=== PATIENT | female | born 1940 | race Caucasian/White ===

== ENCOUNTER → 2017-08-27 08:43 | Outpatient (CLI) | payer MEDICARE, SELFPAY ==
--- NOTE | 2017-08-27 09:00 | ECHOD_ITS ---
Reason For Study: DYSPNEA/SOB Procedure This was a 2D Doppler, Color Flow transthoracic echocardiogram. Contrast injection was performed. The exam was of fair technical quality due to body habitus. Exam performed in department. Left Ventricle Normal size and thickness. The estimated ejection fraction is 50 %. Stage 2 diastolic dysfunction. There is mild global hypokinesis of the left ventricle. Right Ventricle Normal size and thickness. Normal systolic function. Atria The left atrium is moderately enlarged. Normal right atrium. Normal atrial septum. Mitral Valve The mitral valve is structurally normal. No prolapse or stenosis seen. Trivial mitral valve insufficiency. Tricuspid Valve Normal tricuspid valve. Trivial tricuspid valve insufficiency. Right ventricular systolic pressure estimated to be 42 mmHg. Mild pulmonary hypertension. Aortic Valve Normal aortic valve. Trisinus/trileaflet aortic valve. Pulmonic Valve Normal pulmonic valve. Great Vessels Normal aortic root. Normal arch. Normal inferior vena cava. Inferior vena cava collapse with sniff. Pericardium/Pleural No pericardial effusion. Medication 22 gauge I.V. with prn adaptor inserted into right arm. Diluted definity 3ml given slow IV push to enhance endocardial definition. MMode/2D Measurements & Calculations LVIDd: 5.7 cm IVSd: 0.90 cm LA dimension: 3.1 cm LVIDs: 4.5 cm LVPWd: 0.99 cm RVDd: 3.5 cm FS: 21.7 % LAV(MOD-bp): 73.2 ml EDV(MOD-sp4): 119.6 ml EDV(MOD-sp2): 111.7 ml LAV(MOD-bp) Indexed: 32.5 ml/m2 ESV(MOD-sp4): 56.5 ml EF(MOD-sp2): 48.6 % LAV(MOD-sp2): 69.5 ml EF(MOD-sp4): 52.8 % LAV(MOD-sp4): 70.8 ml SV(MOD-sp4): 63.1 ml SV(MOD-sp2): 54.3 ml LA A4 area: 23.4 cm2 RA A4 area: 15.5 cm2 Doppler Measurements & Calculations MV E max iglesia: 102.3 cm/sec Ao V2 max: 175.3 cm/sec LV V1 max: 98.7 cm/sec MV A max iglesia: 84.6 cm/sec Ao max P.3 mmHg LV V1 max P.9 mmHg MV E/A: 1.2 Interpretation Summary The estimated ejection fraction is 50 %. Stage 2 diastolic dysfunction. There is mild global hypokinesis of the left ventricle. The left atrium is moderately enlarged. Trivial mitral valve insufficiency. Trivial tricuspid valve insufficiency. Right ventricular systolic pressure estimated to be 42 mmHg. Mild pulmonary hypertension. Compared to echo report dated 03/02/2017, LV function appears slightly worse, and pt appears to have at least mild pulmonary HTN. Ordering Physician: Masoud Hayward MD Referring Physician: Audi Hayward MD Performed By: Dot Brunson, YOSEPH, RVT
--- NOTE | 2017-08-29 06:48 | PFTCOMP_ITS ---
COMPLETE PULMONARY FUNCTION TEST INTERPRETATION Brief HPI: Patient is a 77 year old female, currently under the care of Dr. Hayward , who presents to [facility] for complete pulmonary function tests secondary to diagnosis of dyspnea on exertion. Respiratory therapist reports good effort and reproducible results. Interpretation: Forced expiration spirometry shows no large airways obstructive ventilatory defect with an FEV1 of 81 % predicted. There is no significant bronchodilator response by ATS criteria. Spirograms are of good quality and plateau normally. The respiratory flow volume loop shows a normal pattern. Lung volumes by body plethysmography show a normal total lung capacity at 3.9 L , 86 % predicted. All other lung volumes are within normal limits. Diffusion capacity by carbon monoxide is decreased at 54 % predicted. The airway resistance is normal. No previous pulmonary function tests were available for review. Impression: Normal spirometry and lung volumes, but isolated defect in diffusion capacity consistent with a pulmonary vascular disorder.
== END ==
PROVIDERS: Family Provider Family Medicine; PCP Family Medicine; Visit Provider Internal Medicine Critical Care Medicine
DX: R06.09 Other forms of dyspnea (principal)
CPT/HCPCS: 93306; 94060; 94726; 94729; Q9957; A4216; C8929

== ENCOUNTER → 2017-09-15 12:57 | Outpatient (CLI) | payer MEDICARE, SELFPAY | PROVIDERS: Family Provider Family Medicine; PCP Family Medicine; Visit Provider Family Medicine | DX: E11.9 Type 2 diabetes mellitus without complications (principal) | CPT/HCPCS: 36415; 83036 ==

== ENCOUNTER → 2018-01-06 09:33 | Outpatient (CLI) | payer MEDICARE, SELFPAY ==
--- NOTE | 2018-01-06 09:33 | DT_ITS ---
This patient was seen during an EMR downtime January 04, 2018 - January 11, 2018. This patient may have a combination of paper and electronic documentation or all paper documentation. All documentation is viewable within the e-chart portion of [facility] for each patient visit.
[2018-01-11 13:23] LABS: Cholesterol 165 mg/dL (200); High Density Lipoprotein 60 mg/dL; Triglycerides 152 mg/dL; Very Low Density Lipoprotein 30 mg/dL (5-40)
== END ==
PROVIDERS: Family Provider Family Medicine; PCP Family Medicine; Visit Provider Family Medicine
DX: E11.9 Type 2 diabetes mellitus without complications (principal); G47.33 Obstructive sleep apnea (adult) (pediatric); E78.5 Hyperlipidemia, unspecified
CPT/HCPCS: 36415; 80061; 83036

== ENCOUNTER → 2018-01-18 12:59 | Outpatient (CLI) | payer MEDICARE, SELFPAY | PROVIDERS: Family Provider Family Medicine; PCP Family Medicine; Visit Provider Internal Medicine Critical Care Medicine | DX: G47.33 Obstructive sleep apnea (adult) (pediatric) (principal) | CPT/HCPCS: 98960; G0463 ==

== ENCOUNTER → 2018-01-22 10:16 | Outpatient (CLI) | payer MEDICARE, SELFPAY | PROVIDERS: Family Provider Family Medicine; PCP Family Medicine; Visit Provider Family Medicine | DX: E11.9 Type 2 diabetes mellitus without complications (principal); G47.30 Sleep apnea, unspecified; E78.5 Hyperlipidemia, unspecified | CPT/HCPCS: 83036 ==

== ENCOUNTER → 2018-04-07 11:40 | Outpatient (CLI) | payer MEDICARE, SELFPAY ==
[2018-04-07 13:00] LABS: Hemoglobin A1c 6.9 % (4.2-6.3)
== END ==
PROVIDERS: Family Provider Family Medicine; PCP Family Medicine; Visit Provider Family Medicine
DX: E11.9 Type 2 diabetes mellitus without complications (principal); Z79.4 Long term (current) use of insulin
CPT/HCPCS: 36415; 83036

== ENCOUNTER → 2018-04-19 14:41 | Outpatient (CLI) | payer MEDICARE, SELFPAY ==
--- NOTE | 2018-04-19 14:43 | ECHOD_ITS ---
Reason For Study: Afib-Flutter Procedure This was a 2D Doppler, Color Flow transthoracic echocardiogram. Technically difficult study due to body habitus. Exam performed in department. Left Ventricle Normal size and thickness. The estimated ejection fraction is 65 %. Stage 1 diastolic dysfunction. No regional wall motion abnormalities noted. Right Ventricle Normal size and thickness. Normal systolic function. Atria Normal left atrium. Normal right atrium. Normal atrial septum. Mitral Valve The mitral valve is structurally normal. No prolapse or stenosis seen. Tricuspid Valve Normal tricuspid valve. Unable to estimate RV systolic pressure/pulmonary artery pressure due to technically difficult study. Aortic Valve Trisinus/trileaflet aortic valve. Mild diffuse aortic valve thickening. Trivial aortic valve insufficiency. Pulmonic Valve Normal pulmonic valve. Great Vessels Normal aortic root. Normal arch. Normal inferior vena cava. Inferior vena cava collapse with sniff. Pericardium/Pleural No pericardial effusion. MMode/2D Measurements & Calculations LVIDd: 5.6 cm IVSd: 0.85 cm Ao root diam: 3.6 cm LVIDs: 4.1 cm LVPWd: 1.0 cm LA dimension: 3.4 cm RVDd: 3.1 cm FS: 27.7 % LAV(MOD-bp): 45.6 ml LA A4 area: 16.2 cm2 RA A4 area: 15.8 cm2 LAV(MOD-bp) Indexed: 20.2 ml/m2 LAV(MOD-sp2): 49.3 ml LAV(MOD-sp4): 44.8 ml Time Measurements MV dec time: 0.24 sec Doppler Measurements & Calculations MV E max henrry: 64.5 cm/sec Lat Peak E' Henrry: 8.1 cm/sec Med Peak E' Henrry: 7.0 cm/sec MV A max henrry: 85.2 cm/sec E/E' lat: 7.9 E/E' med: 9.2 MV E/A: 0.76 MV V2 max: 105.0 cm/sec MV P1/2t max henrry: 84.7 cm/sec Ao V2 max: 181.1 cm/sec MV max P.4 mmHg MV P1/2t: 74.9 msec Ao max P.1 mmHg MV V2 mean: 55.9 cm/sec MV dec slope: 331.3 cm/sec2 Ao V2 mean: 108.3 cm/sec MV mean P.5 mmHg MVA(P1/2t): 2.9 cm2 Ao mean P.6 mmHg MV V2 VTI: 27.8 cm Ao V2 VTI: 37.6 cm AI max henrry: 400.6 cm/sec LV V1 max: 111.7 cm/sec PA V2 max: 92.5 cm/sec AI max P.2 mmHg LV V1 max P.0 mmHg AI dec slope: 239.8 cm/sec2 LV V1 mean P.5 mmHg AI P1/2t: 489.3 msec LV V1 mean: 73.3 cm/sec LV V1 VTI: 25.2 cm Interpretation Summary The estimated ejection fraction is 65 %. Stage 1 diastolic dysfunction. Unable to estimate RV systolic pressure/pulmonary artery pressure due to technically difficult study. Trivial aortic valve insufficiency. Compared to echo report dated 08/27/2017, LV function has normalized from 50% to 65%. Ordering Physician: Abdoul Alcala Referring Physician: Audi Hayward Performed By: Lewis Bernstein RCS
== END ==
PROVIDERS: Family Provider Family Medicine; PCP Family Medicine; Visit Provider Internal Medicine Cardiovascular Disease
DX: Z98.890 Other specified postprocedural states (principal)
CPT/HCPCS: 93306

== ENCOUNTER → 2018-07-14 11:15 | Outpatient (CLI) | payer MEDICARE, SELFPAY ==
[2018-07-14 10:36] VITALS: BMI 51.7
[2018-07-14 12:32] LABS: Hemoglobin A1c 7.6 % (4.2-6.3)
--- OUTSIDE RECORDS SUMMARY | 2018-08-30 14:09 | XMS RPT_ITS ---
:1940 Author Organization [facility] Support Name Relationship Address Phone R Unavailable Unavailable Unavailable SUPPAN, DENISE Unavailable Unavailable + [place] [address] KORIN, INOCENCIA Unavailable [address] + [place] [address] R Unavailable Unavailable Unavailable SUPPAN, DENISE Unavailable Unavailable + [place] [address] KORIN, INOCNECIA Unavailable [address] + [place] [address] R Unavailable Unavailable Unavailable SUPPAN, DENISE Unavailable . + [place] [address] KORIN, INOCENCIA Unavailable [address] + [place] [address] R Unavailable Unavailable Unavailable SUPPAN, DENISE Unavailable . + [place] [address] KORIN, INOCENCIA Unavailable [address] + [place] [address] R Unavailable Unavailable Unavailable SUPPAN, DENISE Unavailable Unavailable + [place] [address] KORIN, INOCENCIA Unavailable [address] + [place] [address] R Unavailable Unavailable Unavailable SUPPAN, DENISE Unavailable Unavailable + [place] [address] KORIN, INOCENCIA Unavailable [address] + [place] [address] R Unavailable Unavailable Unavailable SUPPAN, DENISE Unavailable . + [place] [address] KORIN, INOCENCIA Unavailable [address] + [place] [address] R Unavailable Unavailable Unavailable SUPPAN, DENISE Unavailable Unavailable + [place] [address] KORIN, INOCENCIA Unavailable [address] + [place] [address] R Unavailable Unavailable Unavailable SUPPAN, DENISE Unavailable . + [place] [address] KORIN, INOCENCIA Unavailable [address] + [place] [address] R Unavailable Unavailable Unavailable SUPPAN, DENISE Unavailable Unavailable + [place] [address] KORIN, INOCENCIA Unavailable [address] + [place] [address] R Unavailable Unavailable Unavailable SUPPAN, DENISE Unavailable Unavailable + [place] [address] KORIN, INOCENCIA Unavailable [address] + [place] [address] R Unavailable Unavailable Unavailable SUPPAN, DENISE Unavailable Unavailable + [place] [address] KORIN, INOCENCIA Unavailable [address] + [place] [address] R Unavailable Unavailable Unavailable KORIN, INOCENCIA Unavailable [address] + [place] [address] R Unavailable Unavailable Unavailable SUPPAN, DENISE Unavailable Unavailable + [place] [address] KORIN, INOCENCIA Unavailable [address] + [place] [address] R Unavailable Unavailable Unavailable SUPPAN, DENISE Unavailable . + ., [place] . KORIN, INOCENCIA Unavailable [address] + [place] [address] R Unavailable Unavailable Unavailable KORIN, INOCENCIA Unavailable [address] + [place] [address] R Unavailable Unavailable Unavailable KORIN, INOCENCIA Unavailable [address] + [place] [address] R Unavailable Unavailable Unavailable KORIN, INOCENCIA Unavailable [address] + [place] [address] R Unavailable Unavailable Unavailable KORIN, INOCENCIA Unavailable [address] + [place] [address] R Unavailable Unavailable Unavailable R Unavailable Unavailable Unavailable KORIN, INOCENCIA Unavailable [address] + [place] [address] R Unavailable Unavailable Unavailable KORIN, INOCENCIA Unavailable [address] + [place] [address] KORIN, KIMBERLY Unavailable [address] [facility] + [place] [address] R Unavailable Unavailable Unavailable KORIN, INOCENCIA Unavailable [address] + [place] [address] KORIN, KIMBERLY Unavailable [address] [facility] + [place] [address] R Unavailable Unavailable Unavailable KORIN, INOCENCIA Unavailable [address] + [place] [address] KORIN, KIMBERLY Unavailable [address] [facility] + [place] [address] R Unavailable Unavailable Unavailable KORIN, INOCENCIA Unavailable [address] + [place] [address] Care Team Providers Name Role Phone Deshaun Haywardlas Attending Unavailable Brown, Audi Referring Unavailable Brown, Audi Attending Unavailable Brown, Audi Referring Unavailable Brown, Audi Primary Care Unavailable Masoud Hayward D.O. Attending Unavailable Masoud Hayward D.O. Referring Unavailable Brown, Audi Primary Care Unavailable Brown, Audi Attending Unavailable Brown, Audi Referring Unavailable Brown, Audi Primary Care Unavailable Bandar Falcon Attending Unavailable Masoud Hayward D.O. Referring Unavailable Destiny Huff Attending Unavailable Johanna Henao Attending Unavailable Brown, Audi Referring Unavailable Argenis Monzon Attending Unavailable Amilcar Brush Attending Unavailable Brown, Audi Referring Unavailable Brown, Audi Primary Care Unavailable Abdoul Alcala Attending Unavailable Masoud Hayward D.O. Referring Unavailable Marjorie Rasheed Attending Unavailable Destiny Huff Attending Unavailable Brown, Audi Attending Unavailable Brown, Audi Referring Unavailable Brown, Audi Primary Care Unavailable Minerva UriosteguiO. Attending Unavailable Brown, Audi Referring Unavailable Brown, Audi Attending Unavailable Brown, Audi Referring Unavailable Brown, Audi Primary Care Unavailable Masoud Hayward D.O. Attending Unavailable Brown, Audi Primary Care Unavailable Minerva UriosteguiO. Referring Unavailable Brown, Audi Attending Unavailable Brown, Audi Referring Unavailable Brown, Audi Primary Care Unavailable Marjorie Rasheed Attending Unavailable Brown, Audi Attending Unavailable Brown, Audi Referring Unavailable Brown, Audi Primary Care Unavailable Brown, Audi Attending Unavailable Brown, Audi Referring Unavailable Brown, Audi Primary Care Unavailable Abdoul Alcala Attending Unavailable Brown, Audi Referring Unavailable Brown, Audi Primary Care Unavailable Abdoul Alcala Attending Unavailable Abdoul Alcala Referring Unavailable Audi Hayward Primary Care Unavailable Abdoul Alcala Attending Unavailable Abdoul Alcala Referring Unavailable Johanna Henao Attending Unavailable MainorAudi Referring Unavailable PROBLEMS PROBLEMS DATE TYPE CONDITION / CODE ATTENDING STATUS SOURCE 07/14/2018 Unknown E11.9 - Type 2 Audi Hayward Active [place] diabetes mellitus [facility] without Hospital complications / Repository E11.9(ICD-10) 07/05/2018 Unknown G47.33 - Obstructive Jeremie Henao sleep apnea (adult) [facility] (pediatric) / Hospital G47.33(ICD-10) Repository 07/05/2018 Unknown E66.01 - Morbid Jeremie Henao (severe) obesity due [facility] to excess calories / Hospital E66.01(ICD-10) Repository 04/12/2018 Unknown I48.0 - Paroxysmal Abdoul Alcala Active [place] atrial fibrillation [facility] / I48.0(ICD-10) Hospital Repository 04/12/2018 Unknown Z98.890 - Other Abdoul Alcala Active [place] specified [facility] postprocedural Hospital states / Repository Z98.890(ICD-10) 04/12/2018 Unknown I27.20 - Pulmonary Abdoul Alcala Active [place] hypertension, [facility] unspecified / Hospital I27.20(ICD-10) Repository 04/07/2018 Unknown Z79.4 - [facility] Audi Hayward Active [place] (current) use of [facility] insulin / Hospital Z79.4(ICD-10) Repository 10/07/2017 Unknown R06.09 - Other forms Abdoul Alcala Active [place] of dyspnea / Community R06.09(ICD-10) Hospital Repository PROCEDURES PROCEDURES No Procedure Records FoundRESULTS RESULTS INTERNAL MEDICINE Observed: 07/14/2018 Status: F Source: [place] OFFICE VISIT 11:[address] [facility] REPOSITORY [facility] [address] [place] [address] [place] [address] OFFICE VISIT Date of Service: 07/14/18 MR#: [id number] Acct: [id number] Name: CAMI LANGLEY Rep #: [id number] : 1940 Provider: Audi Hayward DO Age/Sex: 78/F [place] [facility] [place] Status: Signed Intake Vital Signs07/14/18 Body Mass Index (BMI) 51.7 07/14/18 Height 5 ft 2 in 07/14/18 Weight: 280 lb 07/14/18 Body Mass Index (BMI) 51.2 07/14/18 Blood Pressure 153/75 H Intake Visit Reasons: 3 MO FU Chief Complaint: 3 Mo f/u - has had a couple episodes of low blood sugars Is patient in pain?: No Allergies lisinopril Allergy (Verified 07/14/18 10:30) Unknown Medications Ascorbic Acid [Vitamin C] 1,000 mg PO DAILY 03/24/17 [History Confirmed 07/14/18] Cholecalciferol (Vitamin D3) [Vitamin D3] 2,000 unit PO DAILY 03/24/17 [History Confirmed 07/14/18] Naproxen Sodium [Aleve] 220 mg PO Q8H PRN PRN 03/24/17 [History Confirmed 07/14/18] Glenwood-3 Fatty Acids/Fish Oil [Fish Oil 1,000 mg Capsule] 1 ea PO DAILY 03/24/17 [History Confirmed 07/14/18] Aspirin [Aspirin, Baby] 81 mg PO DAILY@0800 04/28/17 [History Confirmed 07/14/18] magnesium 200 mg tablet 200 mg PO QDAY tab 09/24/17 [History Confirmed 07/14/18] potassium 99 mg tablet 99 mg PO QDAY 09/24/17 [History Confirmed 07/14/18] losartan 50 mg tablet 50 mg PO DAILY #90 tab 12/30/17 [Rx Confirmed 07/14/18] levothyroxine 50 mcg tablet 50 mcg PO DAILY #90 tab 01/22/18 [Rx Confirmed 07/14/18] cetirizine 10 mg disintegrating tablet 10 mg PO QDAY #90 tab 02/11/18 [Rx Confirmed 07/14/18] metoprolol succinate ER 25 mg tablet,extended release 24 hr 25 mg PO BID #180 tab 02/11/18 [Rx Confirmed 07/14/18] sitagliptin 50 mg-metformin 1,000 mg tablet 1 tab PO BID #180 tab 03/10/18 [Rx Confirmed 07/14/18] simvastatin 40 mg tablet 40 mg PO QHS #90 tab 05/11/18 [Rx Confirmed 07/14/18] glipizide 5 mg tablet 5 mg PO BID #180 tab 05/26/18 [Rx Confirmed 07/14/18] insulin NPH isophane U- 100 human 100 unit/mL subcutaneous suspension 30 unit SC BID #20 ml 07/14/18 [Rx Confirmed 07/14/18] PFSH Medical History AF (paroxysmal atrial fibrillation) (Chronic) History of hysterectomy (Resolved) Osteoarthritis (Chronic) Obesity (Chronic) Vertigo (Chronic) Hyperlipidemia (Chronic) HTN (hypertension) (Chronic) Diabetes mellitus (Chronic) Chronic fatigue and malaise (Chronic) Daytime somnolence (Chronic) A-fib (Chronic) Chest pain (Acute) Palpitations (Acute) DEE (obstructive sleep apnea) (Chronic) Dyspnea on exertion (Chronic) Surgical History History of cardiac cath (Chronic 04/29/17) History of cataract surgery (Resolved) History of tonsillectomy (Resolved) History of appendectomy (Resolved) Family History Mother Hypertension Cancer Father Hypertension Diabetes Sister Diabetes Social History Smoking Status: Never smoker second hand exposure: No alcohol intake: never substance use type: does not use HPI HPI Chief Complaint: 3 Mo f/u - has had a couple episodes of low blood sugars Details: CAMI LANGLEY, is a 78 F who presents to the office today for follow-up on her blood sugars as well as to have her left knee injected. ROS Const Constitutional: No chills, fatigue, fever(s), frequent falls, malaise, weakness, sleep problems or change in appetite Eyes Eyes: No blurry vision, change in vision, double vision, discharge or visual disturbances ENT ENT: No abnormal hearing, ear pain, ear pressure, tinnitus or dizziness/vertigo Resp Respiratory: No cough, shortness of breath or wheezing Cardio Cardiology: No chest pain at rest, chest pain with exertion, shortness of breath, dyspnea on exertion, generalized swelling, irregular heart rhythm, lightheadedness, orthopnea, fast heart rate or palpitations Gastro GI: No abdominal pain, change in bowel habits, constipation, diarrhea, nausea/dyspepsia or vomiting Genitourinary-Female: No difficulty urinating, burning urination, painful urination, urinary incontinence, urinary frequency, urinary urgency, urinary hesitancy, urinary retention, Frequent nighttime urination/ nocturia, sexual problems, genital lesions, abnormal vaginal bleeding, pelvic pain, vaginal dryness, vaginal odor or Vaginal Itching Musc Musculoskeletal: No joint pain, back pain, joint swelling, limited range of motion, numbness, tingling or muscle weakness Skin Skin: No change in skin color, itching, rash or wounds Breast Breast: No breast lump or breast pain Neuro Neurology: No frequent falls, weakness, visual disturbances, abnormal hearing, numbness, tingling, unsteady gait/balance, dizziness, loss of vision or memory loss Psych Psychiatric: No change in appetite, No memory loss, No anxiety, No depression, No Thoughts of harming yourself/Others Endo Endocrine: No fatigue, heat intolerance, increased thirst/drinking, increased hunger or increased urination Aller/Imm Allergy/Immunologic: No wheezing, itchy eyes or seasonal allergy symptoms Eugenio/Lymp Hematologic/Lymphatic: No easy bleeding, easy bruising or enlarged lymph nodes Exam Const Nutritional Appearance: obese morbidly obese Orientation: oriented x3 Neck Neck: no lymphadenopathy Thyroid: thyroid normal Resp Effort AND Inspection: decreased respiratory effort Auscultation: Bilateral: Clear to Auscultation Cardio Rate: regular rate Rhythm: regular rhythm GI Auscultation: normal bowel sounds Musc Musculoskeletal: Yes joint tenderness (left knee); no muscle weakness Skin Lesions: lesion noted (healing bite on the right lower leg) Neuro General: oriented x3 Extrem General: no clubbing, cyanosis or edema Psych Mental Status: mental status grossly normal Office Procedures Ortho Injections Injections Yes Knee Left Details: Left knee injected with 2 cc of 1%xylocaine and one cc of Kenalog Office Meds Kennolberto Performing Provider: Audi Hayward DO Administered by: Audi Hayward DO on 07/14/18 11:17 Dose Route Admin Location Lot Number Expiration Date NDC [employer] 40 mg IM left knee [id number] 07/20/18 4020-8795-83 [facility] Assessment AND Plan Plan This patient's been doing relatively well her dyspnea is better she has been seeing cardiology and pulmonology. Her left knee which she has had injected in the past has flared up and she had it injected with Kenalog and Xylocaine again. Hemoglobin A1c was ordered medications were updated. By enlarge I think this patient is doing well she has lost 9 pounds since her last visit and I encouraged her to keep up with the weight loss. Orders Orders: Medications Refilled: Discontinued: Kenalog (triamcinolone acetonide) Discontinued Reason:40 mg IM ONCE 1 mL 0RF NS M17.12 Office Medication has been Documented as given Plan Detail Follow Up 3 Months Coding Level of Care Code Off vis,est,level 3 Additional Codes autoglazier.knee (57873) 07/14/18 1123 <Electronically signed by Audi Hayward DO> Date Audi Hayward DO Cosigner Signature: Date (if applicable) CC: HEMOGLOBIN A1C Collected: 07/14/2018 Status: F Source: [place] 11:[address] [facility] REPOSITORY TYPE CODE TESTS RESULT OUT OF RANGE REFERENCE UNITS LAB L501.9985 4.2-6.3 % High HGB A1C 7.6 Performed By: #### L501.9985 #### [facility] [place], [place], [address] PULMONARY VISIT REPORT Observed: 07/05/2018 Status: F Source: [place] 10:[address] [facility] REPOSITORY [facility] [address] [place] [address] OFFICE VISIT Date of Service: 07/05/18 MR#: [id number] Acct: [id number] Name: CAMI LANGLEY Rep #: [id number] : 1940 Provider: Johanna Henao Age/Sex: 78/F [place] [facility] [place] Status: Signed Assessment AND Plan 1. DEE (obstructive sleep apnea) G47.33 Plan Patient is using and benefiting from Pap therapy. No indication for titration study at this time. Continue to encourage weight loss. Contact the office for any new or worsening symptoms in the meantime. Follow-up in 6 mos. 2. Class 3 severe obesity due to excess calories with serious comorbidity and body mass index (BMI) of 50.0 to 59.9 in adult E66.01 Plan Continue to encourage weight loss. Patient is actively watching her diet. Discussed that with a 20% weight loss she may require less pressure for her BiPAP. Patient conveys understanding. Follow-up with Dr. Hayward in 6 months, contact the office if having any difficulties with her Pap in the meantime. Plan Detail Follow Up 6 Months (DMB) HPI 6 M FU: Chief Complaint: Lower extremity edema HPI Comments Details: This is a 78 year old F, here to follow up for sleep apnea. She is ambulatory and currently on room air. She is accompanied today by her . She has not been seen in the ED or urgent care for respiratory illnesses since her last office visit. Is not required any antibiotics or prednisone for any breathing problems. She experiences shortness of breath on exertion only, denies any shortness of breath with rest or conversation. She denies any cough, sputum production or hemoptysis. She denies any wheezing, chest tightness, chest pain or palpitations. She denies any fever, chills or body aches. She continues to experience lower extremity edema, reports that she was trialed on a water pill but was not found to be effective for her. She has tried Etienne wraps, she believes her edema is more related to lymph drainage. Unfortunately she was unable to keep up with the Etienne wraps. She did purchase a pair of pressure stockings, unfortunately she was unable to get them on. Current use of pressure support therapy is on average of nearly 8 hours per night with current settings of 18/12 cmH2O. CAMI denies any daytime somnolence, dry mouth in the morning, nocturia, snoring through the mask, or morning headaches, but is experiencing difficulty with mask leaks. CAMI reports feeling rested in the morning and is benefitting from current therapy. Compliance report was reviewed and shows 100% compliance, AHI is controlled at an average of 1.3 events per hour and leads do not appear to be a problem. Intake Vital Signs07/05/18 Height 5 ft 2 in 07/05/18 Weight: 283 lb Intake Visit Reasons: 6 M FU DME Vendor: [employer] Accompanied by: Allergies lisinopril Allergy (Verified 07/05/18 10:08) Unknown Medications Ascorbic Acid [Vitamin C] 1,000 mg PO DAILY 03/24/17 [History Confirmed 07/05/18] Cholecalciferol (Vitamin D3) [Vitamin D3] 2,000 unit PO DAILY 03/24/17 [History Confirmed 07/05/18] Naproxen Sodium [Aleve] 220 mg PO Q8H PRN PRN 03/24/17 [History Confirmed 07/05/18] [place]wood-3 Fatty Acids/Fish Oil [Fish Oil 1,000 mg Capsule] 1 ea PO DAILY 03/24/17 [History Confirmed 07/05/18] Aspirin [Aspirin, Baby] 81 mg PO DAILY@0800 04/28/17 [History Confirmed 07/05/18] magnesium 200 mg tablet 200 mg PO QDAY tab 09/24/17 [History Confirmed 07/05/18] potassium 99 mg tablet 99 mg PO QDAY 09/24/17 [History Confirmed 07/05/18] losartan 50 mg tablet 50 mg PO DAILY #90 tab 12/30/17 [Rx Confirmed 07/05/18] levothyroxine 50 mcg tablet 50 mcg PO DAILY #90 tab 01/22/18 [Rx Confirmed 07/05/18] cetirizine 10 mg disintegrating tablet 10 mg PO QDAY #90 tab 02/11/18 [Rx Confirmed 07/05/18] metoprolol succinate ER 25 mg tablet,extended release 24 hr 25 mg PO BID #180 tab 02/11/18 [Rx Confirmed 07/05/18] sitagliptin 50 mg-metformin 1,000 mg tablet 1 tab PO BID #180 tab 03/10/18 [Rx Confirmed 07/05/18] hydrochlorothiazide 12.5 mg tablet 12.5 mg PO DAILY #30 tab 04/12/18 [Rx Confirmed 07/05/18] simvastatin 40 mg tablet 40 mg PO QHS #90 tab 05/11/18 [Rx Confirmed 07/05/18] glipizide 5 mg tablet 5 mg PO BID #180 tab 05/26/18 [Rx Confirmed 07/05/18] insulin NPH isophane U- 100 human 100 unit/mL subcutaneous suspension 30 unit SC BID #10 ml 06/16/18 [Rx Confirmed 07/05/18] [facility] Medical History AF (paroxysmal atrial fibrillation) (Chronic) History of hysterectomy (Resolved) Osteoarthritis (Chronic) Obesity (Chronic) Vertigo (Chronic) Hyperlipidemia (Chronic) HTN (hypertension) (Chronic) Diabetes mellitus (Chronic) Chronic fatigue and malaise (Chronic) Daytime somnolence (Chronic) A-fib (Chronic) Chest pain (Acute) Palpitations (Acute) DEE (obstructive sleep apnea) (Chronic) Dyspnea on exertion (Chronic) Surgical History History of cardiac cath (Chronic 04/29/17) History of cataract surgery (Resolved) History of tonsillectomy (Resolved) History of appendectomy (Resolved) Family History Mother Hypertension Cancer Father Hypertension Diabetes Sister Diabetes Social History Smoking Status: Never smoker second hand exposure: No alcohol intake: never substance use type: does not use Review of Systems Const CONSTITUTIONAL: Negative anorexia, body ache, chills, daytime sleepiness, fever(s), night sweats, oral thrush, stops breathing during sleep, weight loss, sleeping in chair, fatigue, weight loss, weight gain, frequent colds, seasonal allergies, other, headache(s) or orthopnea EETM Ear Nose Throat Mouth: Positive hearing normal; negative hard of hearing, hoarseness, dry mouth in morning, change in vision, itchy eyes, eye pain, swallowing Difficulty, ear pain, nose bleed, headache(s), mouth pain, nasal congestion, nasal discharge, post nasal drip, sinus pain, sinus pressure, sore throat or other Cardio Cardiovascular: Negative chest pain, chest pain at rest, chest pain with activity, irregular heart rhythm, edema, shortness of breath when lying down, palpitations, murmur or other Resp Respiratory: Positive as per HPI and shortness of breath shortness of breath: Positive with activity; negative pain with cough, wheezing, chest congestion, cough, chest tightness, pain on inspiration, inhalers, increase use of rescue inhalers, snoring, apnea or other Gastro Gastrointestional: Negative bloody stools, change in appetite, difficulty swallowing, reflux, hematemesis, melena stool, loose stool, constipation or other Genitourinary: Negative blood in urine, nocturia, pain with urination or other Musc Musculoskeletal: Negative body pain, back pain, neck pain or other Skin/Breast Skin/Breast: Negative dry skin, itching, rash, unusual bruising, breast lump or other Neuro Neurological: Negative restless legs, confusion, weakness or other Psych Psychocological: Negative abnormal sleep pattern, anxiety, thoughts of hurting self/others, hopelessness or other Lymph Lymphatic: Negative easy bleeding, easy bruising, swollen lymph nodes or other Exam Const Constitutional: Positive conversant, cooperative, in no acute respiratory distress, healthy appearing, well developed, well nourished, good hygiene and obese Head Head: Positive normocephalic and atraumatic; negative cyanosis of lips/distal nose Eyes Eye: Positive clear conjunctiva; negative nystagmus or scleral abnormality Ears Ear: Positive hearing normal and external ears normal; negative hard of hearing Nose Nose: Positive external nose normal and no nasal discharge; negative epistaxis Mouth Mouth: Positive oral mucosae normal, no lesions, good dentition and posterior oropharynx is adequate; negative post nasal drip, malodorous breath or oral thrush present Mallampati Score: II: Mallampati Score Neck Neck: Positive normal visual inspection, full ROM and trachea midline; negative lymphadenopathy, JVD or tender Chest Wall Chest: Positive normal inspection of the chest and symmetric chest movement; negative increased A/P diameter Resp lung sounds: Positive clear to auscultation, good air exchange, normal expiratory time and normal respiratory effort; negative diminished, wheezes, rhonchi, rales, dullness to percussion or wheeze present on forced exhalation Cardio Cardiac: Positive regular rate, regular rhythm, S1 normal and S2 normal; negative murmur GI GI: Positive normal to inspection and obese; negative distended Genitourinary: Positive deferred Musc Musculoskeletal: Positive steady gait and ROM normal; negative kyphosis or scoliosis Skin Pulmonary Skin Exam: Positive intact; negative rash Pulses Pulse: Yes pulses normal x4 extremities Extremities Extremities: Yes capillary refill normal, No clubbing, No cyanosis, Yes edema Location: lower extremity location: Bilateral pitting +2 Neuro Neurologic: Yes conversant, Yes no focal neuro deficits, Yes normal concentration, Yes understands questions, Yes cooperative, Yes normal cognition, Yes normal coordination, No tremor Lymph Lymphatic: No lymphadenopathy, No tenderness, No cervical adenopathy Psych Appearance: Positive grossly normal, eye contact and well kempt Mental Status: Positive mental status grossly normal Mood: Positive congruent mood Affect: Positive normal affect Coding Level of Care Code Off vis,est,level 3 Diagnoses DEE (obstructive sleep apnea) G47.33 Class 3 severe obesity due to excess calories with serious comorbidity and body mass index (BMI) of 50.0 to 59.9 in adult E66.01 Obesity type: due to excess calories Obesity classification: adult class 3 (BMI >= 40) Serious obesity comorbidity presence: with serious comorbidity Body mass index: BMI 50.0-59.9 07/05/18 1044 <Electronically signed by Johanna CHAVEZ> Date Johanna CHAVEZ Cosigner Signature: Date (if applicable) CC: Audi Hayward DO ECHOCARDIOGRAM COMPLETE Observed: 04/20/2018 Status: F Source: [place] 11:[address] [facility] REPOSITORY [facility] Cardiovascular Services [address] [place] [id number] Echo Complete 04/19/18 1445 MR#: [id number] Acct: [id number] Name: CAMI LANGLEY Rep #: [id number] : 1940 77 From: Abdoul Alcala MD Attending Dr: Abdoul Alcala MD Status: [facility] Ordering Dr: Abdoul Alcala MD Date: 04/19/18 Location: [facility] Sex: F C Admitted: Reason For Study: Afib-Flutter Procedure This was a 2D Doppler, Color Flow transthoracic echocardiogram. Technically difficult study due to body habitus. Exam performed in department. Left Ventricle Normal size and thickness. The estimated ejection fraction is 65 %. Stage 1 diastolic dysfunction. No regional wall motion abnormalities noted. Right Ventricle Normal size and thickness. Normal systolic function. Atria Normal left atrium. Normal right atrium. Normal atrial septum. Mitral Valve The mitral valve is structurally normal. No prolapse or stenosis seen. Tricuspid Valve Normal tricuspid valve. Unable to estimate RV systolic pressure/pulmonary artery pressure due to technically difficult study. Aortic Valve Trisinus/trileaflet aortic valve. Mild diffuse aortic valve thickening. Trivial aortic valve insufficiency. Pulmonic Valve Normal pulmonic valve. Great Vessels Normal aortic root. Normal arch. Normal inferior vena cava. Inferior vena cava collapse with sniff. Pericardium/Pleural No pericardial effusion. MMode/2D Measurements AND Calculations LVIDd: 5.6 cm IVSd: 0.85 cm Ao root diam: 3.6 cm LVIDs: 4.1 cm LVPWd: 1.0 cm LA dimension: 3.4 cm RVDd: 3.1 cm FS: 27.7 % LAV(MOD-bp): 45.6 ml LA A4 area: 16.2 cm2 RA A4 area: 15.8 cm2 LAV(MOD-bp) Indexed: 20.2 ml/m2 LAV(MOD-sp2): 49.3 ml LAV(MOD-sp4): 44.8 ml Time Measurements MV dec time: 0.24 sec Doppler Measurements AND Calculations MV E max henrry: 64.5 cm/sec Lat Peak E' Henrry: 8.1 cm/sec Med Peak E' Henrry: 7.0 cm/sec MV A max henrry: 85.2 cm/sec E/E' lat: 7.9 E/E' med: 9.2 MV E/A: 0.76 MV V2 max: 105.0 cm/sec MV P1/2t max henrry: 84.7 cm/sec Ao V2 max: 181.1 cm/sec MV max P.4 mmHg MV P1/2t: 74.9 msec Ao max P.1 mmHg MV V2 mean: 55.9 cm/sec MV dec slope: 331.3 cm/sec2 Ao V2 mean: 108.3 cm/sec MV mean P.5 mmHg MVA(P1/2t): 2.9 cm2 Ao mean P.6 mmHg MV V2 VTI: 27.8 cm Ao V2 VTI: 37.6 cm AI max henrry: 400.6 cm/sec LV V1 max: 111.7 cm/sec PA V2 max: 92.5 cm/sec AI max P.2 mmHg LV V1 max P.0 mmHg AI dec slope: 239.8 cm/sec2 LV V1 mean P.5 mmHg AI P1/2t: 489.3 msec LV V1 mean: 73.3 cm/sec LV V1 VTI: 25.2 cm Interpretation Summary The estimated ejection fraction is 65 %. Stage 1 diastolic dysfunction. Unable to estimate RV systolic pressure/pulmonary artery pressure due to technically difficult study. Trivial aortic valve insufficiency. Compared to echo report dated 08/27/2017, LV function has normalized from 50% to 65%. Ordering Physician: Abdoul Alcala Referring Physician: Audi Hayward Performed By: Lewis Bernstein RCS 04/20/18 1105 Date Abdoul Alcala MD CC: Abdoul Alcala MD; Audi HaywardDO Date Dictated: 04/19/18 1445 Date Transcribed: 04/20/18 1105 Head Housekeeper: Signed CARDIOLOGY VISIT Observed: 04/20/2018 Status: F Source: [place] REPORT 10:[address] [facility] REPOSITORY [facility] [address] [place] [address] OFFICE VISIT Date of Service: 04/12/18 MR#: [id number] Acct: [id number] Name: CAMI LANGLEY Rep #: [id number] : 1940 Provider: Abdoul Alcala MD Age/Sex: 77/F [place] [facility] [place] Status: Signed HPI HPI Details: CAMI LANGLEY is a 77 F who presents to the office today for Intake Vital Signs04/12/18 Body Mass Index (BMI) 52.8 04/12/18 Blood Pressure 140/70 04/12/18 Height 5 ft 2 in 04/12/18 Weight: 289 lb 04/12/18 Body Mass Index (BMI) 52.8 04/12/18 Blood Pressure 140/70 Intake Visit Reasons: 6 M FU Talent Development Analyst Required: No Accompanied by: Is patient in pain?: No Allergies lisinopril Allergy (Verified 04/12/18 14:11) Unknown Medications Ascorbic Acid [Vitamin C] 1,000 mg PO DAILY 03/24/17 [History Confirmed 04/09/18] Cholecalciferol (Vitamin D3) [Vitamin D3] 2,000 unit PO DAILY 03/24/17 [History Confirmed 04/09/18] Naproxen Sodium [Aleve] 220 mg PO Q8H PRN PRN 03/24/17 [History Confirmed 04/09/18] [place]-3 Fatty Acids/Fish Oil [Fish Oil 1,000 mg Capsule] 1 ea PO DAILY 03/24/17 [History Confirmed 04/09/18] Simvastatin [Zocor] 40 mg PO QHS 03/24/17 [History Confirmed 04/09/18] glipiZIDE [Glucotrol] 5 mg PO BID 03/24/17 [History Confirmed 04/09/18] Aspirin [Aspirin, Baby] 81 mg PO DAILY@0800 04/28/17 [History Confirmed 04/09/18] magnesium 200 mg tablet 200 mg PO QDAY tab 09/24/17 [History Confirmed 04/12/18] potassium 99 mg tablet 99 mg PO QDAY 09/24/17 [History Confirmed 04/12/18] losartan 50 mg tablet 50 mg PO DAILY #90 tab 12/30/17 [Rx Confirmed 04/09/18] insulin NPH isophane U-100 human 100 unit/mL subcutaneous suspension 30 unit SC BID #10 ml 01/22/18 [Rx Confirmed 04/09/18] levothyroxine 50 mcg tablet 50 mcg PO DAILY #90 tab 01/22/18 [Rx Confirmed 04/09/18] cetirizine 10 mg disintegrating tablet 10 mg PO QDAY #90 tab 02/11/18 [Rx Confirmed 04/09/18] metoprolol succinate ER 25 mg tablet,extended release 24 hr 25 mg PO BID #180 tab 02/11/18 [Rx Confirmed 04/09/18] sitagliptin 50 mg-metformin 1,000 mg tablet 1 tab PO BID #180 tab 03/10/18 [Rx Confirmed 04/09/18] hydrochlorothiazide 12.5 mg tablet 12.5 mg PO DAILY #30 tab 04/12/18 [Rx Confirmed 04/12/18] [facility] Medical History AF (paroxysmal atrial fibrillation) (Chronic) Osteoarthritis (Chronic) Obesity (Chronic) Vertigo (Chronic) Hyperlipidemia (Chronic) HTN (hypertension) (Chronic) Diabetes mellitus (Chronic) Chronic fatigue and malaise (Chronic) Daytime somnolence (Chronic) A-fib (Chronic) Chest pain (Acute) Palpitations (Acute) DEE (obstructive sleep apnea) (Chronic) Dyspnea on exertion (Chronic) Surgical History History of cardiac cath (Chronic 04/29/17) History of cataract surgery (Resolved) History of hysterectomy (Resolved) History of tonsillectomy (Resolved) History of appendectomy (Resolved) Family History Mother Hypertension Cancer Father Hypertension Diabetes Sister Diabetes Social History Smoking Status: Never smoker second hand exposure: No alcohol intake: never substance use type: does not use ROS Const Const: Negative for fatigue, weakness, body ache, fever(s), headache(s), chills, frequent falls, night sweats, daytime sleepiness, difficulty sleeping, excessive sweating, weight gain, weight loss, increased appetite, poor appetite, anorexia or other Eyes Eyes: Negative for blind spots, loss of peripheral vision, transient loss of vision, blurry vision, change in vision, double vision, floaters, tunnel vision or other ENT ENT: Negative for headache(s), dizziness, hearing loss, tinnitus, Nosebleed/epistaxis, balance problems, post nasal drip, lip swelling, tongue swelling, bleeding gums, hoarseness, neck pain, dry mouth or other Cardio Chest Pain: No Palpitations: No Edema: Bilateral (Pitting to mid [place]) Muscle aches with walking: None Resp Respiratory: Positive for SOB with activity and other (Wears BIPAP); negative for SOB at rest, SOB orthopnea\SOB lying down, Cough, Coughing up blood/hemoptysis, chest congestion, pain on inspiration, snoring, stridor, wheezing, crackles or paroxysmal nocturnal dyspnea GI GI: Negative nausea, vomiting, heartburn, constipation, belching, bloating, cramping, vomiting blood/hematemesis, bright, red blood in stools, black,tarry stools, loose stools, Difficulty Swallowing or other : Negative for hematuria, frequent nighttime urination/ nocturia, erectile dysfunction or abnormal vaginal bleeding Musc Musc: Negative for balance problems, muscle aches/ myalgia, muscle weakness or joint pain Skin Skin: Negative redness, non-healing lesions, rash, unusual bruising, skin ulcer, wounds, jaundice or other Neuro Neuro: Negative for weakness, headache(s), frequent falls, blurry vision, double vision, dizziness, lightheadedness, near syncope, syncope, orthostatic symptoms, confusion, memory loss, restless legs, vertigo, seizures, lack of coordination or other Eugenio Hematologic/Lymphatic: Negative for easy bleeding, easy bruising, enlarged lymph nodes or other Endo Endo: Negative for fatigue, excessive sweating, cold intolerance, heat intolerance, flushing, increased thirst/drinking, increased hunger, hair loss, hair growth or other Psych Psych: Negative for anxiety, depression, thoughts of harming anyone, thoughts of harming yourself, visual hallucinations, panic attacks or audible hallucinations Allergy Allergy/Immunology: Negative for lip swelling, Negative for tongue swelling, Negative for rash, Negative for throat swelling, Negative for hives Assessment AND Plan Orders Orders: Medications New: Plan Detail Follow Up 6M (Fredrick) Coding Level of Care Code Off vis,est,level 3 Coding Level of Care Code Off vis,est,level 3 04/20/18 1013 <Electronically signed by Abdoul Alcala MD> Date Abdoul Alcala MD Cosigner Signature: Date (if applicable) CC: Audi Hayward DO CARDIOLOGY VISIT Observed: 04/12/2018 Status: F Source: [place] REPORT 2:[address] [facility] REPOSITORY [facility] [address] [place] [address] OFFICE VISIT Date of Service: 04/12/18 MR#: [id number] Acct: [id number] Name: CAMI LANGLEY Rep #: [id number] : 1940 Provider: Abdoul Alcala MD Age/Sex: 77/F Location: [facility] Status: Signed HPI HPI Chief Complaint: Routine f/u Details: CAMI LANGLEY, is a 77 F who presents to the office today for a cardiovascular outpatient follow-up. Patient history of paroxysmal atrial fibrillation, hypertension, hyperlipidemia, DEE, and diabetes. Pt. denies chest, arm, jaw, or neck discomfort. Her exercise tolerance is stable. Pt. denies symptoms of CHF, palpitations, lightheadedness, dizziness, near syncope, or syncopal episodes. Pt. denies edema or claudication issues. Pt. denies orthopnea, PND, fever, chills, blood in urine, blood in stool, myalgia, or unexplainable fatigue. Patient apparently took herself off anticoagulation and she could not afford it. She complains of chronic dyspnea on exertion, bilateral lower extremity pitting, and uses BiPAP. She denies any chest pain or anginal symptoms. She reports that her edema improves with going to sleep, and then returns during the day. She has never tried Etienne bandages. He reports that she is trying as best she can to use her BiPAP mask however it appears to not fit well. In our office her blood pressure is 140/70, pulse is 84 and regular with ectopic beats. EKG today demonstrates normal sinus rhythm with frequent PACs, normal axis, normal intervals no evidence of previous myocardial infarction. Her lipids as of 01/06/18 show an LDL of 75 and HDL of 60. Intake Vital Signs04/12/18 Height 5 ft 2 in 04/12/18 Weight: 289 lb 04/12/18 Body Mass Index (BMI) 52.8 04/12/18 Blood Pressure 140/70 Intake Visit Reasons: 6 M FU Allergies lisinopril Allergy (Verified 04/12/18 14:11) Unknown Medications Ascorbic Acid [Vitamin C] 1,000 mg PO DAILY 03/24/17 [History Confirmed 04/09/18] Cholecalciferol (Vitamin D3) [Vitamin D3] 2,000 unit PO DAILY 03/24/17 [History Confirmed 04/09/18] Naproxen Sodium [Aleve] 220 mg PO Q8H PRN PRN 03/24/17 [History Confirmed 04/09/18] [place]-3 Fatty Acids/Fish Oil [Fish Oil 1,000 mg Capsule] 1 ea PO DAILY 03/24/17 [History Confirmed 04/09/18] Simvastatin [Zocor] 40 mg PO QHS 03/24/17 [History Confirmed 04/09/18] glipiZIDE [Glucotrol] 5 mg PO BID 03/24/17 [History Confirmed 04/09/18] Aspirin [Aspirin, Baby] 81 mg PO DAILY@0800 04/28/17 [History Confirmed 04/09/18] magnesium 200 mg tablet 200 mg PO QDAY tab 09/24/17 [History Confirmed 04/12/18] potassium 99 mg tablet 99 mg PO QDAY 09/24/17 [History Confirmed 04/12/18] losartan 50 mg tablet 50 mg PO DAILY #90 tab 12/30/17 [Rx Confirmed 04/09/18] insulin NPH isophane U-100 human 100 unit/mL subcutaneous suspension 30 unit SC BID #10 ml 01/22/18 [Rx Confirmed 04/09/18] levothyroxine 50 mcg tablet 50 mcg PO DAILY #90 tab 01/22/18 [Rx Confirmed 04/09/18] cetirizine 10 mg disintegrating tablet 10 mg PO QDAY #90 tab 02/11/18 [Rx Confirmed 04/09/18] metoprolol succinate ER 25 mg tablet,extended release 24 hr 25 mg PO BID #180 tab 02/11/18 [Rx Confirmed 04/09/18] sitagliptin 50 mg-metformin 1,000 mg tablet 1 tab PO BID #180 tab 03/10/18 [Rx Confirmed 04/09/18] hydrochlorothiazide 12.5 mg tablet 12.5 mg PO DAILY #30 tab 04/12/18 [Rx Confirmed 04/12/18] [facility] Medical History AF (paroxysmal atrial fibrillation) (Chronic) Osteoarthritis (Chronic) Obesity (Chronic) Vertigo (Chronic) Hyperlipidemia (Chronic) HTN (hypertension) (Chronic) Diabetes mellitus (Chronic) Chronic fatigue and malaise (Chronic) Daytime somnolence (Chronic) A-fib (Chronic) Chest pain (Acute) Palpitations (Acute) DEE (obstructive sleep apnea) (Chronic) Dyspnea on exertion (Chronic) Surgical History History of cardiac cath (Chronic 04/29/17) History of cataract surgery (Resolved) History of hysterectomy (Resolved) History of tonsillectomy (Resolved) History of appendectomy (Resolved) Family History Mother Hypertension Cancer Father Hypertension Diabetes Sister Diabetes Social History Smoking Status: Never smoker second hand exposure: No alcohol intake: never substance use type: does not use Cardiology Exam Const Appearance: cooperative, healthy appearing and no acute distress Nutritional Appearance: well nourished Orientation: alert, oriented x3 and oriented to person Head Head: normal to inspection, atraumatic and normocephalic Nose: external nose normal Face and Sinus: face symmetric Mouth: oral mucosae normal Eyes General: appearance normal, both eyes and all related structures Eyelids: eyelids normal Conjunctivae: conjunctivae normal Pupils: PERRL and normal by confrontation EOM: EOM intact bilaterally Neck Neck: normal visual inspection and full ROM Carotids: normal carotid upstroke Chest Chest inspection: normal inspection of the chest Auscultation: Bilateral: Clear to Auscultation Cardio Palpation: normal PMI Rate: regular rate Rhythm: regular rhythm Heart sounds: S1 normal and S2 normal GI GI: normal to inspection, no hepatosplenomegaly and bowel sounds present Neuro General: alert, oriented x3, awake, CN's II-XI intact bilaterally and moves all extremities Skin Skin: no rashes or lesions noted Extremities Pulses: Normal: Right Femoral Pulse, Left Femoral Pulse, Right Dorsalis Pedis Pulse, Left Dorsalis Pedis Pulse, Right Posterior Tibial Pulse, Left Posterior Tibial Pulse, Right Radial Pulse, Left Radial Pulse Lower Extremity Edema: None: Bilateral Psych Psychological: normal affect Assessment AND Plan 1. Pulmonary hypertension I27.20 Plan 1. Pulmonary hypertension: Have recommended that we repeat her ED echo with Doppler to determine her LV function and more importantly her pulmonary pressures. Her most recent echocardiogram in August 2017 showed mild global LV dysfunction with an EF of 50%, and RVSP of around 42 mmHg. Since that time her lower extremity edema has worsened, and I recommended that we start her on hydrochlorothiazide 12.5 mg p.o. daily, as well as Etienne bandages followed by ADRY bourne. If her pulmonary pressures are worsen, she may require more aggressive pulmonary vasodilatation measures that can be obtained with pulmonary consultation. Her blood pressure appears to be well controlled. Strongly recommended that she continue her losartan, magnesium, baby aspirin, and metoprolol. 2. AF (paroxysmal atrial fibrillation) I48.0 Plan 2. Paroxysmal atrial fibrillation: Currently normal sinus rhythm with frequent PACs today. Her Holter monitor shows no evidence of ongoing atrial fibrillation. Patient stopped her anticoagulation due to cost issues. Depending upon her repeat echocardiogram and pulmonary pressures will restart Coumadin therapy for both paroxysmal atrial fibrillation and pulmonary hypertension. 3. Hyperlipidemia: Her LDL and HDL cholesterol are fairly well-controlled. Continue Zocor. 4. Return office in 6 months. This note was generated using a voice recognition system and there may be incorrect words, spelling or punctuation that were not noted when reviewing the office note prior to saving. Orders Orders: Plan Detail Other Orders Orders: Other Medications New: Follow Up 6M (Alcala) Coding Level of Care Code Off vis,est,level 3 Diagnoses Pulmonary hypertension I27.20 AF (paroxysmal atrial fibrillation) I48.0 Coding Level of Care Code Off vis,est,level 3 Diagnoses Pulmonary hypertension I27.20 AF (paroxysmal atrial fibrillation) I48.0 04/12/18 1435 <Electronically signed by Abdoul Alcala MD> Date Abdoul Alcala MD Cosigner Signature: Date (if applicable) CC: 12 LEAD EKG PERFORMED Observed: 04/12/2018 Status: F [place] [facility] [place] 2:[address] [facility] REPOSITORY [facility] [address] [place] [address] 12 Lead EKG performed by [facility] [place] 04/12/18 1415 MR#: [id number] Acct: [id number] Name: CAMI LANGLEY Rep #: [id number] : 1940 77 From: Abdoul Alcala MD Attending Dr: Abdoul Alcala MD Status: DEP AMB Ordering Dr: Abdoul Alcala MD Date: 04/12/18 Location: [facility] [place] Sex: F C Admitted: BMS/12 Lead EKG performed by [facility] [place] ECG Report Interpretation Sinus Rhythm - frequent PAC s # PACs = 4.Low voltage -possible pulmonary disease. ABNORMAL Electronically signed on 07/16/2018 at 15:50 by Abdoul Alcala Software Version [id number] 07/16/18 1556 Date Abdoul Alcala MD CC: Audi Hayward DO Date Dictated: 04/12/18 1415 Date Transcribed: 04/12/181414 Head Housekeeper: Signed INTERNAL MEDICINE Observed: 04/07/2018 Status: F Source: [place] OFFICE VISIT 12:22 PM [facility] [address] [place] [address] [place] [address] OFFICE VISIT Date of Service: 04/07/18 MR#: [id number] Acct: [id number] Name: CAMI LANGLEY Rep #: [id number] : 1940 Provider: Audi Hayward DO Age/Sex: 77/F [place] [facility] [place] Status: Signed Intake Vital Signs04/07/18 Height 5 ft 2 in 04/07/18 Weight: 289 lb 04/07/18 Body Mass Index (BMI) 52.8 04/07/18 Blood Pressure 170/78 04/07/18 Blood Pressure Location Rt brachial Intake Visit Reasons: 3 M FU Chief Complaint: 3 MO FU Is patient in pain?: No Allergies lisinopril Allergy (Verified 04/07/18 10:29) Unknown Medications Apixaban [Eliquis] 5 mg PO BID 03/24/17 [History Confirmed 04/07/18] Ascorbic Acid [Vitamin C] 1,000 mg PO DAILY 03/24/17 [History Confirmed 04/07/18] Cholecalciferol (Vitamin D3) [Vitamin D3] 2,000 unit PO DAILY 03/24/17 [History Confirmed 04/07/18] Naproxen Sodium [Aleve] 220 mg PO Q8H PRN PRN 03/24/17 [History Confirmed 04/07/18] [place]-3 Fatty Acids/Fish Oil [Fish Oil 1,000 mg Capsule] 1 ea PO DAILY 03/24/17 [History Confirmed 04/07/18] Simvastatin [Zocor] 40 mg PO QHS 03/24/17 [History Confirmed 04/07/18] glipiZIDE [Glucotrol] 5 mg PO BID 03/24/17 [History Confirmed 04/07/18] Aspirin [Aspirin, Baby] 81 mg PO DAILY@0800 04/28/17 [History Confirmed 04/07/18] magnesium 200 mg tablet 200 mg PO QDAY tab 09/24/17 [History Confirmed 04/07/18] potassium 99 mg tablet 99 mg PO QDAY 09/24/17 [History Confirmed 04/07/18] losartan 50 mg tablet 50 mg PO DAILY #90 tab 12/30/17 [Rx Confirmed 04/07/18] insulin NPH isophane U-100 human 100 unit/mL subcutaneous suspension 30 unit SC BID #10 ml 01/22/18 [Rx Confirmed 04/07/18] levothyroxine 50 mcg tablet 50 mcg PO DAILY #90 tab 01/22/18 [Rx Confirmed 04/07/18] cetirizine 10 mg disintegrating tablet 10 mg PO QDAY #90 tab 02/11/18 [Rx Confirmed 04/07/18] metoprolol succinate ER 25 mg tablet,extended release 24 hr 25 mg PO BID #180 tab 02/11/18 [Rx Confirmed 04/07/18] sitagliptin 50 mg-metformin 1,000 mg tablet 1 tab PO BID #180 tab 03/10/18 [Rx Confirmed 04/07/18] [facility] Medical History AF (paroxysmal atrial fibrillation) (Chronic) Osteoarthritis (Chronic) Obesity (Chronic) Vertigo (Chronic) Hyperlipidemia (Chronic) HTN (hypertension) (Chronic) Diabetes mellitus (Chronic) Chronic fatigue and malaise (Chronic) Daytime somnolence (Chronic) A-fib (Chronic) Chest pain (Acute) Palpitations (Acute) DEE (obstructive sleep apnea) (Chronic) Dyspnea on exertion (Chronic) Surgical History History of cataract surgery (Resolved) History of hysterectomy (Resolved) History of tonsillectomy (Resolved) History of appendectomy (Resolved) History of cardiac cath (Resolved) Family History Mother Hypertension Cancer Father Hypertension Diabetes Sister Diabetes Social History Smoking Status: Never smoker second hand exposure: No alcohol intake: never substance use type: does not use HPI HPI Chief Complaint: 3 MO FU Details: CAMI LANGLEY, is a 77 F who presents to the office today for ROS Const Constitutional: No chills, fatigue, fever(s), frequent falls, malaise, weakness, sleep problems or change in appetite Eyes Eyes: No blurry vision, change in vision, double vision, discharge or visual disturbances ENT ENT: No abnormal hearing, ear pain, ear pressure, tinnitus or dizziness/vertigo Resp Respiratory: No cough, shortness of breath or wheezing Cardio Cardiology: No chest pain at rest, chest pain with exertion, shortness of breath, dyspnea on exertion, generalized swelling, irregular heart rhythm, lightheadedness, orthopnea, fast heart rate or palpitations Gastro GI: No abdominal pain, change in bowel habits, constipation, diarrhea, nausea/dyspepsia or vomiting Genitourinary-Female: No difficulty urinating, burning urination, painful urination, urinary incontinence, urinary frequency, urinary urgency, urinary hesitancy, urinary retention, Frequent nighttime urination/ nocturia, sexual problems, genital lesions, abnormal vaginal bleeding, pelvic pain, vaginal dryness, vaginal odor or Vaginal Itching Musc Musculoskeletal: No joint pain, back pain, joint swelling, limited range of motion, muscle weakness, numbness or tingling Skin Skin: Positive for sores (Insect bite lower Rt leg, sore on nose); no change in skin color, itching, rash or wounds Breast Breast: No breast lump or breast pain Neuro Neurology: No frequent falls, weakness, abnormal hearing, numbness, tingling, unsteady gait/balance, dizziness, loss of vision, memory loss or visual disturbances Psych Psychiatric: No memory loss, No anxiety, No change in appetite, No depression, No Thoughts of harming yourself/Others Endo Endocrine: No fatigue, heat intolerance, increased thirst/drinking, increased hunger or increased urination Aller/Imm Allergy/Immunologic: No wheezing, itchy eyes or seasonal allergy symptoms Eugenio/Lymp Hematologic/Lymphatic: No easy bleeding, easy bruising or enlarged lymph nodes Exam Const Nutritional Appearance: obese morbidly obese Orientation: oriented x3 Neck Neck: no lymphadenopathy Thyroid: thyroid normal Resp Effort AND Inspection: decreased respiratory effort Auscultation: Bilateral: Clear to Auscultation Cardio Rate: regular rate Rhythm: regular rhythm GI Auscultation: normal bowel sounds Musc Musculoskeletal: No muscle weakness Skin Lesions: lesion noted (healing bite on the right lower leg) Neuro General: oriented x3 Extrem General: no clubbing, cyanosis or edema Psych Mental Status: mental status grossly normal Assessment AND Plan Problems 1. Type 2 diabetes mellitus without complication, with long- term current use of insulin E11.9 2. Essential hypertension I10 3. Mixed hyperlipidemia E78.2 4. AF (paroxysmal atrial fibrillation) I48.0 5. Pulmonary hypertension I27.20 6. DEE (obstructive sleep apnea) G47.33 Plan This patient was seen for routine checkup on her diabetes and hemoglobin A1c was ordered. She is also having some difficulty with her mask for obstructive sleep apnea I suggested she contact Dr. Masoud Hayward's office for further advice on how to obtain a mask that fits better. She was bit by some type of insect on her right leg and she has a 1 cm scab but it appears to be healing well. I advised her to keep the area moist so would heal quicker and if the scab but not resolved in 2 weeks to let us know I might have to curette that lesion. Orders Orders: Plan Detail Follow Up 3 Months Coding Level of Care Code Off vis,est,level 3 Diagnoses Type 2 diabetes mellitus without complication, with long-term current use of insulin E11.9 Diabetes mellitus type: type 2 Diabetes mellitus complication status: without complication Diabetes mellitus shelter insulin use: with vessel welder use Essential hypertension I10 Hypertension type: essential hypertension Mixed hyperlipidemia E78.2 Hyperlipidemia type: mixed hyperlipidemia AF (paroxysmal atrial fibrillation) I48.0 Pulmonary hypertension I27.20 DEE (obstructive sleep apnea) G47.33 04/07/18 1222 <Electronically signed by Audi Hayward DO> Date Audi Hayward DO Cosigner Signature: Date (if applicable) CC: HEMOGLOBIN A1C Collected: 04/07/2018 Status: F Source: [place] 11:[address] [facility] REPOSITORY TYPE CODE TESTS RESULT OUT OF RANGE REFERENCE UNITS LAB L501.9985 4.2-6.3 % High HGB A1C 6.9 Performed By: #### L501.9985 #### [facility] [address] [place], [address] HEMOGLOBIN A1C Collected: 01/22/2018 Status: F Source: [place] 10:[address] [facility] REPOSITORY TYPE CODE TESTS RESULT OUT OF RANGE REFERENCE UNITS LAB L501.9985 4.2-6.3 % High HGB A1C 7.0 Performed By: #### L501.9985 #### [facility] [address] [place], [address] DOWNTIME REPORT Observed: 01/21/2018 Status: F Source: [place] 12:[address] [facility] REPOSITORY [facility] Medical Records Department [address] [place] [address] Downtime Report MR#: [id number] Acct: [id number] Name: CAMI LANGLEY Rep #: [id number] : 1940 77 From: Дмитрий Singh PCP: Audi Hayward, Status: REG CLI This patient was seen during an EMR downtime January 04, 2018 - January 11, 2018. This patient may have a combination of paper and electronic documentation or all paper documentation. All documentation is viewable within the e-chart portion of [employer] for each patient visit. LIPID PROFILE Collected: 01/06/2018 Status: F Source: [place] 9:[address] [facility] REPOSITORY Order Comment: RESULT(S) PREVIOUSLY REPORTED ON MANUAL REQUISITION DURING DOWNTIME. TYPE CODE TESTS RESULT OUT OF RANGE REFERENCE UNITS LAB L501.4900 200 mg/dL Normal CHOL 165 Result Comment: <200 mg/dL Desirable 200-240 mg/dL Borderline >240 mg/dL High Risk LAB L501.5000 mg/dL Normal TRIG 152 Result Comment: The drugs N-Acetylcysteine and Metamizole may falsely depress this assay. Serum Triglycerides Reference Interval Normal <150 mg/dL Borderline high 150 - 199 mg/dL High 200 - 499 mg/dL Very High > or = 500 mg/dL LAB L501.6400 mg/dL Normal HDL 60 Result Comment: The drugs N-Acetylcysteine and Metamizole may falsely depress this assay. Reference Range HDL <40 mg/dL Low HDL Cholesterol HDL >or= 60 mg/dL High HDL Cholesterol LAB L501.6500 0-130 mg/dL Normal LDL 75 LAB L501.6600 5-40 mg/dL Normal VLDL 30 Performed By: #### L500.4100 #### [facility] [address] [place], [address] CARDIOLOGY VISIT Observed: 10/05/2017 Status: F Source: [place] REPORT 10:[address] [facility] REPOSITORY [facility] [address] [place] [address] OFFICE VISIT Date of Service: 09/24/17 MR#: [id number] Acct: [id number] Name: CAMI LANGLEY Rep #: [id number] : 1940 Provider: TONYA Brush Age/Sex: 77/F [place] [facility] [place] Status: Signed HPI HPI Details: CAMI LANGLEY is a 77 F who presents to the office today for a cardiovascular outpatient follow-up. Patient history of paroxysmal atrial fibrillation, hypertension, hyperlipidemia, DEE, and diabetes. Pt. denies chest, arm, jaw, or neck discomfort. Her exercise tolerance is stable. Pt. denies symptoms of CHF, palpitations, lightheadedness, dizziness, near syncope, or syncopal episodes. Pt. denies edema or claudication issues. Pt. denies orthopnea, PND, fever, chills, blood in urine, blood in stool, myalgia, or unexplainable fatigue. in the context of Intake Vital Signs09/24/17 Height 5 ft 2 in 09/24/17 Weight: 285 lb 09/24/17 Body Mass Index (BMI) 52.1 09/24/17 Blood Pressure 130/62 Intake Visit Reasons: 6 M FU Allergies lisinopril Allergy (Verified 09/23/17 10:06) Unknown Medications Apixaban [Eliquis] 5 mg PO BID 03/24/17 [History Confirmed 09/24/17] Ascorbic Acid [Vitamin C] 1,000 mg PO DAILY 03/24/17 [History Confirmed 09/24/17] Cholecalciferol (Vitamin D3) [Vitamin D3] 2,000 unit PO DAILY 03/24/17 [History Confirmed 09/24/17] GlipiZIDE [Glucotrol] 5 mg PO BID 03/24/17 [History Confirmed 09/24/17] Losartan Potassium [Cozaar] 50 mg PO DAILY 03/24/17 [History Confirmed 09/24/17] Naproxen Sodium [Aleve] 220 mg PO Q8H PRN PRN 03/24/17 [History Confirmed 09/24/17] [place]-3 Fatty Acids/Fish Oil [Fish Oil 1,000 mg Capsule] 1 ea PO DAILY 03/24/17 [History Confirmed 09/24/17] Simvastatin [Zocor] 40 mg PO QHS 03/24/17 [History Confirmed 09/24/17] Sitagliptin Phos/Metformin HCl [Janumet 50-1,000 MG Tablet] 1 tab PO BIDCM 03/24/17 [History Confirmed 09/24/17] Aspirin [Aspirin, Baby] 81 mg PO DAILY@0800 04/28/17 [History Confirmed 09/24/17] Levothyroxine Sodium [Levoxyl] 50 mcg PO DAILY 04/29/17 [History Confirmed 09/24/17] Insulin NPH Human Isophane [Novolin N] 100 unit SQ UD 05/26/17 [History Confirmed 09/24/17] magnesium 200 mg tablet 200 mg PO QDAY tab 09/24/17 [History Confirmed 09/24/17] metoprolol succinate ER 25 mg tablet,extended release 24 hr 25 mg PO BID tab 09/24/17 [History Confirmed 09/24/17] potassium 99 mg tablet 99 mg PO QDAY 09/24/17 [History Confirmed 09/24/17] PFSH Medical History AF (paroxysmal atrial fibrillation) (Chronic) Osteoarthritis (Chronic) Obesity (Chronic) Vertigo (Chronic) Hyperlipidemia (Chronic) HTN (hypertension) (Chronic) Diabetes mellitus (Chronic) Chronic fatigue and malaise (Chronic) Daytime somnolence (Chronic) A-fib (Chronic) Chest pain (Acute) Palpitations (Acute) DEE (obstructive sleep apnea) (Chronic) Dyspnea on exertion (Chronic) Surgical History History of cataract surgery (Resolved) History of hysterectomy (Resolved) History of tonsillectomy (Resolved) Family History Mother Hypertension Cancer Father Hypertension Diabetes Sister Diabetes Social History Smoking Status: Never smoker second hand exposure: No alcohol intake: never substance use type: does not use ROS Const Const: Negative for fatigue, weakness, body ache, fever(s) or chills ENT ENT: Negative for dizziness Cardio Chest Pain: No Palpitations: Positive for No Edema: None Muscle aches with walking: None Resp Respiratory: Negative for SOB with activity, SOB at rest, SOB orthopnea\SOB lying down or paroxysmal nocturnal dyspnea GI GI: Negative nausea, black,tarry stools, bright, red blood in stools or vomiting blood/hematemesis : Negative for hematuria or frequent nighttime urination/ nocturia Musc Musc: Negative for muscle aches/ myalgia Neuro Neuro: Negative for weakness, Negative for dizziness, Negative for lightheadedness, Negative for near syncope, Negative for syncope, Negative for orthostatic symptoms Endo Endo: Negative for fatigue Cardiology Exam Const Appearance: cooperative, healthy appearing, comfortable and no acute distress Orientation: alert, awake and oriented x3 Head Head: normal to inspection Mouth: oral mucosae normal Neck Neck: no JVD and normal visual inspection Carotids: normal carotid upstroke Chest Chest inspection: normal inspection of the chest and normal respiratory effort Auscultation: Bilateral: Clear to Auscultation Cardio Rate: regular rate Rhythm: regular rhythm Heart sounds: S1 normal and S2 normal; negative rub or gallop GI GI: normal to inspection Neuro General: alert, awake, oriented x3 and CN's II-XI intact bilaterally Skin Skin: no rashes or lesions noted Extremities Pulses: Normal: Right Posterior Tibial Pulse, Left Posterior Tibial Pulse, Right Radial Pulse, Left Radial Pulse Lower Extremity Edema: None: Bilateral Psych Psychological: normal affect Assessment AND Plan 1. Paroxysmal atrial fibrillation I48.0 SCOTT Mckeon Her heart catheterization from April 2017 showed normal coronary arteries with an ejection fraction of 50%. Her 30 day event monitor from May 2017 did not reveal any episodes of atrial fibrillation. Patient appears to be maintaining regular rhythm. Overall patient is doing very well from this standpoint. We will continue with beta-luh and factor Xa inhibitor. We will continue to monitor this. 2. Essential hypertension I10 SCOTT Mckeon Patient's blood pressure is well-controlled today in the office. We will continue to monitor this. We will not make any medication regimen changes. 3. Mixed hyperlipidemia E78.2 SCOTT Mckeon This is managed by primary care physician. Patient will continue current cholesterol-lowering medication. 4. Dyspnea on exertion R06.09 SCOTT Mckeon Patient's echocardiogram from August 2017 showed an ejection fraction of 50%, stage II diastolic dysfunction, moderate enlarged left atrium. Patient states that her breathing is significantly improved. She denies any shortness of breath activity. She does acknowledge some fatigue after long periods of walking. We will continue to monitor this. 5. Pulmonary hypertension I27.20 SCOTT Mckeon Patient's most recent echocardiogram from August 2017 showed mild pulmonary hypertension with an RVSP of 42 mmHg. This was increased since previous echocardiogram. Patient will continue to follow-up with pulmonology for further evaluation of this. Of note patient is not on any diuretic at this time. 6. DEE (obstructive sleep apnea) G47.33 Plan - SCOTT Yeung Patient states feeling significantly better since beginning CPAP therapy. She is advised to continue this therapy and follow-up with pulmonology per their discretion. 7. Type 2 diabetes mellitus without complication, with long- term current use of insulin E11.9; Z79.4 Plan - SCOTT Yeung Patient will continue to follow up with primary care physician for treatment/management of this. Plan Detail Additional Comments - SCOTT Yeung Discussed the above patient with Dr. Alcala, he agrees with the plan of care. Thank you for allowing us to participate in the patients plan of care, if you have any questions please do not hesitate to call. This note was generated using a voice recognition system and there may be incorrect words, spelling or punctuation that were not noted when reviewing the office note prior to saving. 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 Coding Level of Care Code Off vis,est,level 3 Diagnoses Paroxysmal atrial fibrillation I48.0 Essential hypertension I10 Hypertension type: essential hypertension Mixed hyperlipidemia E78.2 Hyperlipidemia type: mixed hyperlipidemia Dyspnea on exertion R06.09 Pulmonary hypertension I27.20 DEE (obstructive sleep apnea) G47.33 Type 2 diabetes mellitus without complication, with long-term current use of insulin E11.9; Z79.4 Diabetes mellitus type: type 2 Diabetes mellitus complication status: without complication Diabetes mellitus vessel welder insulin use: with shelter use 09/24/17 5337 <Electronically signed by Amilcar CHAVEZ> Date Amilcar CHAVEZ 10/05/17 1021<Electronically signed by Abdoul Alcala MD> Cosigner Signature: Date (if applicable) Abdoul Alcala MD CC: Audi Hayward DO PULMONARY VISIT REPORT Observed: 09/24/2017 Status: F Source: [place] 12:[address] [facility] REPOSITORY [facility] [address] [place] [address] OFFICE VISIT Date of Service: 09/23/17 MR#: [id number] Acct: [id number] Name: CAMI LANGLEY Rep #: [id number] : 1940 Provider: Johanna Henao Age/Sex: 77/F Location: [facility] Status: Signed Assessment AND Plan 1. DEE (obstructive sleep apnea) G47.33 Status Chronic Plan Patient is using and benefiting from current pressure support settings. No indication for titration study at this time. Continue current settings, follow-up with Dr. Hayward in 6 months. She has been encouraged to contact the office if she develops any new or worsening symptoms 2. Pulmonary hypertension I27.20 Status Chronic Plan New. Possibly a result of suboptimal treatment of her newly diagnosed obstructive sleep apnea. Anticipate with new better fitting mask and compliance that this may improve. Consider repeating echo in 6 months or [address] Hayward in 6 months. 3. FORBES (dyspnea on exertion) R06.09 Status Chronic Plan Improving. Recently had a pulmonary stress test that supports that the patient does not require supplemental oxygen at this time. Consider repeating a 6 minute walk in 6 months prior to follow-up with Dr. Hayward. If the patient has worsening symptoms in the meantime she has been encouraged to contact the office. 4. Class 3 severe obesity due to excess calories with serious comorbidity and body mass index (BMI) of 50.0 to 59.9 in adult E66.01; Z68.43 Status Chronic Plan She has adopted a new the bleeding stopped, and has been successful pounds. Continue to encourage weight loss. Follow-up with Dr. Hayward in 6 months. Discussed the correlation between obesity and obstructive sleep apnea. Patient and be understanding. Plan Detail Follow Up 6 Months (DMB) HPI 6 wk FU: Chief Complaint: Test results HPI Comments Details: This is a 77 year old very pleasant f, currently under the care of Audi Hayward MD, here today to review test results. I personally reviewed the tests/images/tracings which showed: Complete Pulmonary Function test were preformed on August 29, 2017, and showed FVC of 80 % of predicted, FEV1 of 81 % of predicted, FEV1/FVC ratio of 76 %, TLC of 86 % of predicted, RV of 88 % of predicted, DLCO 54% of predicted. The test was interpreted to be consistent with an isolated defect in diffusing capacity. Echocardiogram completed on August 27, 2017, shows an EF of 50% with stage II diastolic dysfunction and an RVSP of 42 mmHg. This patient presents to the office today ambulatory room air. She reports that she has not been seen in the ED urgent care for any breathing problems visit. He has not required treatment with prednisone. She does have an occasional cough. She denies any sputum production or hemoptysis. She denies any wheezing, chest tightness, chest pain or palpitations. He does not report any lower extremity edema. Treated with diuretic. She reports that her shortness of breath is better. He denies any shortness of breath at rest or during conversation. Shortness of breath is likely evident on exertion. She is compliant with her CPAP. She reports that she recently got a new cushion. She reports that since the addition of new cushion is not any difficulties with air leaks. She is feeling rested in the morning. She wears the CPAP at least 8 hours per night. She denies any difficulty with nocturia. She is not taking naps and denies falling asleep easily watching TV. She reports that she and her recently began eating style, cold galindo's code. This diet discourages eating processed foods, white lower in width. Since beginning this new diet 6 weeks ago she has lost 10 pounds. Intake Vital Signs09/23/17 Height 5 ft 2 in 09/23/17 Weight: 287 lb Intake Visit Reasons: 6 wk FU DME Vendor: [employer] Accompanied by: Allergies lisinopril Allergy (Verified 09/23/17 10:06) Unknown Medications Apixaban [Eliquis] 5 mg PO BID 03/24/17 [History Confirmed 09/23/17] Ascorbic Acid [Vitamin C] 1,000 mg PO DAILY 03/24/17 [History Confirmed 09/23/17] Cholecalciferol (Vitamin D3) [Vitamin D3] 2,000 unit PO DAILY 03/24/17 [History Confirmed 09/23/17] GlipiZIDE [Glucotrol] 5 mg PO BID 03/24/17 [History Confirmed 09/23/17] Losartan Potassium [Cozaar] 50 mg PO DAILY 03/24/17 [History Confirmed 09/23/17] Metoprolol Succinate [Toprol Xl] 50 mg PO BID 03/24/17 [History Confirmed 09/23/17] Naproxen Sodium [Aleve] 220 mg PO Q8H PRN PRN 03/24/17 [History Confirmed 09/23/17] [place]-3 Fatty Acids/Fish Oil [Fish Oil 1,000 mg Capsule] 1 ea PO DAILY 03/24/17 [History Confirmed 09/23/17] Simvastatin [Zocor] 40 mg PO QHS 03/24/17 [History Confirmed 09/23/17] Sitagliptin Phos/Metformin HCl [Janumet 50-1,000 MG Tablet] 1 tab PO BIDCM 03/24/17 [History Confirmed 09/23/17] Aspirin [Aspirin, Baby] 81 mg PO DAILY@0800 04/28/17 [History Confirmed 09/23/17] Levothyroxine Sodium [Levoxyl] 50 mcg PO DAILY 04/29/17 [History Confirmed 09/23/17] Furosemide [Lasix] 40 mg PO DAILY 05/26/17 [History Confirmed 09/23/17] Insulin NPH Human Isophane [Novolin N] 100 unit SQ UD 05/26/17 [History Confirmed 09/23/17] fexofenadine 60 mg-pseudoephedrine ER 120 mg tablet,ext.release,12 hr 1 tab PO ONCE tab 08/06/17 [History Confirmed 09/23/17] PFSH Medical History AF (paroxysmal atrial fibrillation) (Chronic) Osteoarthritis (Chronic) Obesity (Chronic) Vertigo (Chronic) Hyperlipidemia (Chronic) HTN (hypertension) (Chronic) Diabetes mellitus (Chronic) Chronic fatigue and malaise (Chronic) Daytime somnolence (Chronic) A-fib (Chronic) Chest pain (Acute) Palpitations (Acute) DEE (obstructive sleep apnea) (Chronic) Dyspnea on exertion (Chronic) Surgical History History of cataract surgery (Resolved) History of hysterectomy (Resolved) History of tonsillectomy (Resolved) Family History Mother Hypertension Cancer Father Hypertension Diabetes Sister Diabetes Social History Smoking Status: Never smoker second hand exposure: No alcohol intake: never substance use type: does not use Review of Systems Const CONSTITUTIONAL: Negative anorexia, body ache, chills, daytime sleepiness, fever(s), night sweats, oral thrush, stops breathing during sleep, weight loss, sleeping in chair, fatigue, weight loss, weight gain, frequent colds, seasonal allergies, other, headache(s) or orthopnea EETM Ear Nose Throat Mouth: Positive hearing normal; negative hard of hearing, hoarseness, dry mouth in morning, change in vision, itchy eyes, eye pain, swallowing Difficulty, ear pain, nose bleed, headache(s), mouth pain, nasal congestion, nasal discharge, post nasal drip, sinus pain, sinus pressure, sore throat or other Cardio Cardiovascular: Positive murmur; negative chest pain, chest pain at rest, chest pain with activity, irregular heart rhythm, edema, shortness of breath when lying down, palpitations or other Resp Respiratory: Positive as per HPI; negative shortness of breath, pain with cough, wheezing, chest congestion, cough, chest tightness, pain on inspiration, inhalers, increase use of rescue inhalers, snoring, apnea or other Gastro Gastrointestional: Negative bloody stools, change in appetite, difficulty swallowing, reflux, hematemesis, melena stool, loose stool, constipation or other Genitourinary: Positive nocturia; negative blood in urine, pain with urination or other Musc Musculoskeletal: Positive back pain; negative body pain, neck pain or other Skin/Breast Skin/Breast: Positive dry skin and itching; negative rash, unusual bruising, breast lump or other Neuro Neurological: Negative restless legs, confusion, weakness or other Psych Psychocological: Negative abnormal sleep pattern, anxiety, thoughts of hurting self/others, hopelessness or other Lymph Lymphatic: Negative easy bleeding, easy bruising, swollen lymph nodes or other Exam Const Constitutional: Positive conversant, cooperative, in no acute respiratory distress, healthy appearing, well developed, well nourished, good hygiene and obese Head Head: Positive normocephalic and atraumatic; negative cyanosis of lips/distal nose Eyes Eye: Positive clear conjunctiva and nystagmus; negative scleral abnormality Ears Ear: Positive hearing normal and external ears normal; negative hard of hearing Nose Nose: Positive external nose normal and no nasal discharge; negative epistaxis Mouth Mouth: Positive oral mucosae normal, no lesions, good dentition and crowded posterior oropharynx; negative post nasal drip, malodorous breath or oral thrush present Mallampati Score: III: Mallampati Score Neck Neck: Positive normal visual inspection, full ROM, trachea midline, thick neck and female neck greater than 37 cm (15 in); negative lymphadenopathy, JVD or tender Chest Wall Chest: Positive normal inspection of the chest and symmetric chest movement; negative increased A/P diameter Resp lung sounds: Positive diminished, clear to auscultation, normal expiratory time and normal respiratory effort; negative wheezes, wheeze present on forced exhalation, rhonchi, rales, dullness to percussion, increased work of breathing or use of accessory muscles Cardio Cardiac: Positive murmur murmur: Positive RUSB and systolic, regular rate, regular rhythm, S1 normal and S2 normal GI GI: Positive normal to inspection, normal bowel sounds and obese; negative distended Genitourinary: Positive deferred Musc Musculoskeletal: Positive steady gait and ROM normal; negative kyphosis or scoliosis Skin Pulmonary Skin Exam: Positive intact; negative rash, lesion, ulcers, erythema, scaly or dermal atrophy Pulses Pulse: Yes pulses normal x4 extremities Extremities Extremities: Yes edema Location: lower extremity location: Bilateral leg swelling: pitting pitting: +1, Yes capillary refill normal, No clubbing, No cyanosis, No stasis dermatitis Neuro Neurologic: Yes conversant, Yes no focal neuro deficits, Yes cooperative, Yes normal cognition, Yes normal coordination, Yes understands questions, Yes normal concentration Lymph Lymphatic: No lymphadenopathy, No tenderness, No cervical adenopathy, No axillary adenopathy Psych Appearance: Positive grossly normal, eye contact and well kempt Mental Status: Positive mental status grossly normal Mood: Positive congruent mood Affect: Positive normal affect Coding Level of Care Code Off vis,est,level 4 Diagnoses DEE (obstructive sleep apnea) G47.33 Pulmonary hypertension I27.20 FORBES (dyspnea on exertion) R06.09 Class 3 severe obesity due to excess calories with serious comorbidity and body mass index (BMI) of 50.0 to 59.9 in adult E66.01; Z68.43 Obesity type: due to excess calories Obesity classification: adult class 3 (BMI >= 40) Serious obesity comorbidity presence: with serious comorbidity Body mass index: BMI 50.0-59.9 09/24/17 1211 <Electronically signed by Johanna CHAVEZ> Date Johanna CHAVEZ Cosigner Signature: Date (if applicable) CC: Audi Hayward MD HEMOGLOBIN A1C Collected: 09/15/2017 Status: F Source: [place] 1:[address] [facility] REPOSITORY TYPE CODE TESTS RESULT OUT OF RANGE REFERENCE UNITS LAB L501.9985 4.2-6.3 % High HGB A1C 7.0 Performed By: #### L501.9985 #### [facility] [address] [place] [address]. [place], [address] PULMONARY FUNCTION Observed: 08/29/2017 Status: F Source: [place] REPORT COMP 6:[address] [facility] REPOSITORY [facility] Pulmonary Services/Neurology [address] [place] [id number] MR#: [id number] Acct: [id number] Name: CAMI LANGLEY Rep #: [id number] : 1940 77 From: Bandar Falcon MD Referring Dr: Masoud Brown, D.O. Status: REG CLI Ordering Dr: Date: Location: [facility] Sex: F C COMPLETE PULMONARY FUNCTION TEST INTERPRETATION Brief HPI: Patient is a 77 year old female, currently under the care of Dr. Hayward, who presents to [facility] for complete pulmonary function tests secondary to diagnosis of dyspnea on exertion. Respiratory therapist reports good effort and reproducible results. Interpretation: Forced expiration spirometry shows no large airways obstructive ventilatory defect with an FEV1 of 81 % predicted. There is no significant bronchodilator response by ATS criteria. Spirograms are of good quality and plateau normally. The respiratory flow volume loop shows a normal pattern. Lung volumes by body plethysmography show a normal total lung capacity at 3.9 L, 86 % predicted. All other lung volumes are within normal limits. Diffusion capacity by carbon monoxide is decreased at 54 % predicted. The airway resistance is normal. No previous pulmonary function tests were available for review. Impression: Normal spirometry and lung volumes, but isolated defect in diffusion capacity consistent with a pulmonary vascular disorder. 08/29/1748 <Electronically signed by Bandar Falcon MD> Date Bandar Falcon MD CC: Bandar Falcon MD; Masoud Hayward D.O.; Audi Hayward MD Date Dictated: 08/29/17645 Date Transcribed: 08/29/17645 Head Housekeeper: GAYATRI Signed ECHOCARDIOGRAM COMPLETE Observed: 08/27/2017 Status: F Source: [place] 4:[address] [facility] REPOSITORY [facility] Cardiovascular Services [address] [place] [address] Echo Complete W/ Contrast 08/27/17 0853 MR#: [id number] Acct: [id number] Name: CAMI LANGLEY Rep #: [id number] : 1940 77 From: Abdoul Alcala MD Attending Dr: Masoud Hayward D.O. Status: REG CLI Ordering Dr: Masoud Hayward DO Date: 08/27/17 Location: [facility] Sex: F C Admitted: Reason For Study: DYSPNEA/SOB Procedure This was a 2D Doppler, Color Flow transthoracic echocardiogram. Contrast injection was performed. The exam was of fair technical quality due to body habitus. Exam performed in department. Left Ventricle Normal size and thickness. The estimated ejection fraction is 50 %. Stage 2 diastolic dysfunction. There is mild global hypokinesis of the left ventricle. Right Ventricle Normal size and thickness. Normal systolic function. Atria The left atrium is moderately enlarged. Normal right atrium. Normal atrial septum. Mitral Valve The mitral valve is structurally normal. No prolapse or stenosis seen. Trivial mitral valve insufficiency. Tricuspid Valve Normal tricuspid valve. Trivial tricuspid valve insufficiency. Right ventricular systolic pressure estimated to be 42 mmHg. Mild pulmonary hypertension. Aortic Valve Normal aortic valve. Trisinus/trileaflet aortic valve. Pulmonic Valve Normal pulmonic valve. Great Vessels Normal aortic root. Normal arch. Normal inferior vena cava. Inferior vena cava collapse with sniff. Pericardium/Pleural No pericardial effusion. Medication 22 gauge I.V. with prn adaptor inserted into right arm. Diluted definity 3ml given slow IV push to enhance endocardial definition. MMode/2D Measurements AND Calculations LVIDd: 5.7 cm IVSd: 0.90 cm LA dimension: 3.1 cm LVIDs: 4.5 cm LVPWd: 0.99 cm RVDd: 3.5 cm FS: 21.7 % LAV(MOD-bp): 73.2 ml EDV(MOD-sp4): 119.6 ml EDV(MOD-sp2): 111.7 ml LAV(MOD-bp) Indexed: 32.5 ml/m2 ESV(MOD-sp4): 56.5 ml EF(MOD-sp2): 48.6 % LAV(MOD-sp2): 69.5 ml EF(MOD-sp4): 52.8 % LAV(MOD-sp4): 70.8 ml SV(MOD-sp4): 63.1 ml SV(MOD-sp2): 54.3 ml LA A4 area: 23.4 cm2 RA A4 area: 15.5 cm2 Doppler Measurements AND Calculations MV E max henrry: 102.3 cm/sec Ao V2 max: 175.3 cm/sec LV V1 max: 98.7 cm/sec MV A max henrry: 84.6 cm/sec Ao max P.3 mmHg LV V1 max P.9 mmHg MV E/A: 1.2 Interpretation Summary The estimated ejection fraction is 50 %. Stage 2 diastolic dysfunction. There is mild global hypokinesis of the left ventricle. The left atrium is moderately enlarged. Trivial mitral valve insufficiency. Trivial tricuspid valve insufficiency. Right ventricular systolic pressure estimated to be 42 mmHg. Mild pulmonary hypertension. Compared to echo report dated 03/02/2017, LV function appears slightly worse, and pt appears to have at least mild pulmonary HTN. Ordering Physician: Masoud Hayward MD Referring Physician: Audi Hayward MD Performed By: Dot Brunson, YOSEPH, RVT 08/27/17 1657 Date Abdoul Alcala MD CC: Masoud Hayward D.O.; Audi Hayward MD Date Dictated: 08/27/17 0853 Date Transcribed: 08/27/171656 Head Housekeeper: Signed ALLERGIES ALLERGIES DATE TYPE / CODE NAME / CODE REACTION SEVERITY SOURCE 07/14/2018 Drug lisinopril/F Unknown Unknown [place] [facility] Allergy/4160 [id number]( Hospital 20279(SNOMED NORM) Repository CT) ENCOUNTERS ENCOUNTERS ADMIT/DISCHARGE ACCOUNT ADMITTING ENCOUNTER LOCATION SOURCE NUMBER CLASS 08/12/2018 [id number] Amb[place] [facility] [facility] [place] Hospital Repository 07/14/2018 [id number] [place] [facility] ing:LAB Repository 07/14/2018/ [id number] Ambulatory BMSBuilding:B [place] 8 9 [facility] Repository 07/05/2018/ [id number] Ambulatory BMSBuilding:B [place] 8 7 [place].[facility] Repository 04/19/2018 [id number] [place] 7 [facility] Hospital ing:[facility] Repository 04/19/2018 [id number] Ambulatory BMSBuilding:W [place] 9 [facility] Repository 04/12/2018/ [id number] Ambulatory BMSBuilding:B [place] 8 2 [facility] Repository 04/07/2018 [id number] [place] 6 [facility] Hospital ing:LAB Repository 04/07/2018/ [id number] Ambulatory BMSBuilding:B [place] 8 3 [facility] Repository 02/01/2018 [id number] Ambulatory BMSBuilding:B [place] 6 [facility] Repository 01/22/2018 [id number] [place] [facility] Hospital ing:LAB.[facility]UR Repository E 01/18/2018 [id number] [place] [facility] Hospital ing:SL Repository 01/13/2018/ [id number] Ambulatory BMSBuilding:B [place] 8 8 [place].[facility] Repository 01/06/2018 [id number] [place] 4 [facility] Hospital ing:LAB Repository 01/05/2018/ [id number] Ambulatory BMSBuilding:B [place] 8 2 [facility] Repository 01/01/2018 [id number] Ambulatory BMSBuilding:B [place] 4 [facility] Repository 12/07/2017 [id number] Ambulatory BMSBuilding:B [place] 9 [facility] Repository 09/24/2017/ [id number] Ambulatory BMSBuilding:B [place] 8 7 [facility] Repository 09/23/2017 [id number] Ambulatory BMSBuilding:B [place] 5 [facility] Repository 09/23/2017/ [id number] Ambulatory BMSBuilding:B [place] 8 1 [facility] Repository 09/15/2017 [id number] Ambulatory [place] [facility] ing:LAB Repository 08/29/2017 [id number] Ambulatory BMSBuilding:W [place] 6 [facility] Repository 08/27/2017 [id number] Ambulatory [place] [facility] ing:[facility] Repository 08/27/2017 [id number] Ambulatory BMSBuilding:W [place] 7 [facility] Repository PAYERS PAYERS ENCOUNTER GUARANTOR PAYER SUBSCRIBER SOURCE 08/12/2018 CAMI A Primary CAMI A [place] [id number] [place] Insurance:[employer] [place] [id number] Hospital 04572Vxz: (330) Number: Repository [phone] () [id number] Date:5631-07-63QE[address] [address]LH: 08/12/2018 Secondary NOT GIVENUNK [place] Insurance:SELF PAY [facility] Number: Effective Repository Date:2018-08-12 07/14/2018 CAMI A Primary CAMI A [place] [id number] [place] Insurance:[employer] [place] [id number] Hospital 98747Uaw: (330) Number: Repository [phone] () [id number] Date:7041-79-16AW [address] [place] [address] 41783XY: 07/14/2018 Secondary NOT GIVENUNK [place] Insurance:SELF PAY [facility] Number: Effective Repository Date:2018-07-14 07/14/2018 CAMI A Primary CAMI A [place] [id number] [place] Insurance:[employer] [place]: [place] [id number] Hospital 57955Bnp: (330) Number: Repository [phone] () [id number] Date:9387-98-90DQ [address] [place] [address] 96932WQ: 07/14/2018 Secondary NOT GIVENUNK [place] Insurance:SELF PAY [facility] Number: Effective Repository Date:2018-07-14 07/05/2018 CAMI A Primary CAMI A [place] [id number] [place] Insurance:[employer] [place] [id number] Hospital 62850Tbc: (330) Number: Repository [phone] () [id number] Date:5451-76-62RB [address] [place] [address] 02736GY: 07/05/2018 Secondary NOT GIVENUNK [place] Insurance:SELF PAY [facility] Number: Effective Repository Date:2018-06-29 04/19/2018 CAMI A Primary CAMI A [place] [id number] [place] Insurance:[employer] [place] [id number] Hospital 73238Tdf: (330) Number: Repository [phone] () [id number] Date:1772-26-73AZ [address] [place] [address] 57604JL: 04/19/2018 Secondary NOT GIVENUNK [place] Insurance:SELF PAY [facility] Number: Effective Repository Date:2018-04-12 04/19/2018 CAMI A Primary CAMI A [place] [id number] [place] Insurance:[employer] [place] [id number] Hospital 17224Thn: (330) Number: Repository [phone] () [id number] Date:3378-16-99BH [address] [place] [address] 28318NK: 04/19/2018 Secondary NOT GIVENUNK [place] Insurance:SELF PAY [facility] Number: Effective Repository Date:2018-04-19 04/12/2018 CAMI A Primary CAMI A [place] [id number] [place] Insurance:[employer] [place] [id number] Hospital 96776Egk: (330) Number: Repository [phone] () [id number] Date:1420-76-60EF [address] [place] [address] 14856RM: 04/12/2018 Secondary NOT GIVENUNK [place] Insurance:SELF PAY [facility] Number: Effective Repository Date:2018-04-09 04/07/2018 CAMI A Primary CAMI A [place] [id number] [place] Insurance:[employer] [place] [id number] Hospital 36968Wlf: (330) Number: Repository [phone] () [id number] Date:5738-32-76DA [address] [place] [address] 47980OJ: 04/07/2018 Secondary NOT GIVENUNK [place] Insurance:SELF PAY [facility] Number: Effective Repository Date:2018-04-07 04/07/2018 CAMI A Primary CAMI [place] [id number] [place] Insurance:[employer] [place] [id number] Hospital 38540Zmt: (330) Number: Repository [phone] () [id number] Date:7540-59-58FY [address] [place] [address] 54200KX: 04/07/2018 Secondary NOT GIVENUNK [place] Insurance:SELF PAY [facility] Number: Effective Repository Date:2018-04-07 02/01/2018 CAMI A Primary CAMI A [place] [id number] [place] Insurance:[employer] [place] [id number] Hospital 92555Jqw: (330) Number: Repository [phone] () [id number] Date:3406-26-84VL [address] [place] [address] 10768ZS: 02/01/2018 Secondary NOT GIVENUNK [place] Insurance:SELF PAY [facility] Number: Effective Repository Date:2018-02-01 01/22/2018 CAMI A Primary CAMI A [place] [id number] [place] Insurance:[employer] [place] [id number] Hospital 42366Ckm: (330) Number: Repository [phone] () [id number] Date:1465-13-27LK [address] [place] [address] 93130MP: 01/22/2018 Secondary NOT GIVENUNK [place] Insurance:SELF PAY [facility] Number: Effective Repository Date:2018-01-20 01/18/2018 CAMI A Primary CAMI A [place] [id number] [place] Insurance:[employer] [place] [id number] Hospital 88303Kbk: Number: Repository [phone] [id number] (HP) Date:0146-83-91ZY [address] [place] [address] 47795CE: 01/18/2018 Secondary NOT GIVENUNK [place] Insurance:SELF PAY [facility] Number: Effective Repository Date:2018-01-14 01/13/2018 CAMI A Primary CAMI A [place] [id number] [place] Insurance:[employer] [place] [id number] Hospital 74146Kao: (330) Number: Repository [phone] () [id number] Date:7110-39-20EQ [address] [place] [address] 43281OS: 01/13/2018 Secondary NOT GIVENUNK [place] Insurance:SELF PAY [facility] Number: Effective Repository Date:2018-01-13 01/06/2018 CAMI A Primary CAMI [id number] [place] Insurance:[employer] [place] [id number] Hospital 53505Goe: (330) Number: Repository [phone] () [id number] Date:9498-30-30FA [address] [place] [address] 57352YE: 01/06/2018 Secondary NOT GIVENUNK [place] Insurance:SELF PAY [facility] Number: Effective Repository Date:2018-01-06 01/05/2018 CAMI A Primary CAMI [id number] [place] Insurance:[employer] [place] [id number] Hospital 34048Gvx: Number: Repository [phone] [id number] () Date:8683-19-97PV [address] 08648YL: 01/05/2018 Secondary NOT GIVENUNK [place] Insurance:SELF PAY [facility] Number: Effective Repository Date:2018-01-14 01/01/2018 CAMI [id number] Primary CMAI WADEDOB: [place] Insurance:[employer]ARE [id number] [place] Hospital 19204Dhy: (330) Number: Repository [phone] () [id number] Date:8676-97-00FG [address] [place] [address] 73293HS: 01/01/2018 Secondary NOT GIVENUNK [place] Insurance:SELF PAY [facility] Number: Effective Repository Date:2018-01-01 12/07/2017 CAMI [id number] Primary CAMI WADEDOB: [place] Insurance:[employer] [id number] [place] Hospital 730[address]Cwi: (330) Number: Repository [phone] () [id number] Date:9422-51-37BB [address] [place] [address] 74270YJ: 12/07/2017 Secondary NOT GIVENUNK [place] Insurance:SELF PAY [facility] Number: Effective Repository Date:2017-12-07 09/24/2017 CAMI [id number] Primary CAMI WADEDOB: [place] Insurance:[employer] [id number] [place] Hospital 816[address]Mmk: (330) Number: Repository [phone] () [id number] Date:0187-22-23PG [address] [place] [address] 62410FN: 09/24/2017 Secondary NOT GIVENUNK [place] Insurance:SELF PAY [facility] Number: Effective Repository Date:2017-07-09 09/23/2017 CAMI [id number] Primary CAMI WADEDOB: [place] Insurance[place] [id number] [place] Hospital 26288Rxm: (330) Number: Repository [phone] () [id number] Date:8129-93-89OU [address] [place] [address] 27464RB: 09/23/2017 Secondary NOT GIVENUNK [place] Insurance:SELF PAY [facility] Number: Effective Repository Date:2017-09-23 09/23/2017 CAMI [id number] Primary CAMI WADEDOB: [place] Insurance:[employer] [id number] [place] Hospital 01646Pqd: (330) Number: Repository [phone] () [id number] Date:5665-03-90QD [address] [place] [address] 56773CT: 09/23/2017 Secondary NOT GIVENUNK [place] Insurance:SELF PAY [facility] Number: Effective Repository Date:2017-08-11 09/15/2017 CAMI [id number] Primary CAMI WADEDOB: [place] Insurance:[employer] [id number] [place] Hospital 53968Hwi: (330) Number: Repository [phone] () [id number] Date:0865-06-31QD [address] [place] [address] 09617GP: 09/15/2017 Secondary NOT GIVENUNK [place] Insurance:SELF PAY [facility] Number: Effective Repository Date:2017-09-15 08/29/2017 CAMI [id number] Primary CAMI WADEDOB: [place] Insurance:[employer] [id number] [place] Hospital 72731Zmo: (330) Number: Repository [phone] () [id number] Date:9753-89-17IO [address] [place] [address] 87700UP: 08/29/2017 Secondary NOT GIVENUNK [place] Insurance:SELF PAY [facility] Number: Effective Repository Date:2017-08-29 08/27/2017 CAMI [id number] Primary CAMI WADEDOB: [place] Insurance:[employer] [id number] [place] Hospital 71142Tbo: (330) Number: Repository [phone] () [id number] Date:2911-17-43KP [address] 255[address]ZQ: 08/27/2017 Secondary NOT GIVENUNK [place] Insurance:SELF PAY [facility] Number: Effective Repository Date:2017-08-11 08/27/2017 CAMI [id number] Primary CAMI WADEDOB: [place] Insurance:[employer] [id number] [place] Hospital 56702Tde: (330) Number: Repository [phone] () [id number] Date:0370-10-50UA [address] 65579LR: 08/27/2017 Secondary NOT GIVENUNK [place] Insurance:SELF PAY [facility] Number: Effective Repository Date:2017-08-27
== END ==
PROVIDERS: Family Provider Family Medicine; PCP Family Medicine; Referring Provider Family Medicine; Visit Provider Family Medicine
DX: E11.9 Type 2 diabetes mellitus without complications (principal)
CPT/HCPCS: 36415; 83036

== ENCOUNTER → 2018-12-14 | Outpatient (CLI) | payer MEDICARE, SELFPAY ==
[2018-10-20 11:28] VITALS: BMI 49.6
--- NOTE | 2018-12-14 10:44 | ECHOD_ITS ---
Reason For Study: DYSPNEA/SOB Procedure This was a 2D Doppler, Color Flow transthoracic echocardiogram. The study was technically difficult. Due to body habitus. Exam performed in department. Left Ventricle Normal size and thickness. The estimated ejection fraction is 65 %. Stage 1 diastolic dysfunction. No regional wall motion abnormalities noted. Right Ventricle Normal right ventricle. Normal systolic function. Atria Normal left atrium. Normal right atrium. Normal atrial septum. Mitral Valve The mitral valve is structurally normal. No prolapse or stenosis seen. Tricuspid Valve Normal tricuspid valve. Trivial tricuspid valve insufficiency. Right ventricular systolic pressure estimated to be 28 mmHg. Aortic Valve Trisinus/trileaflet aortic valve. Mild focal aortic valve thickening. There is no aortic stenosis. Pulmonic Valve Normal pulmonic valve. Great Vessels Normal aortic root. Normal arch. Normal inferior vena cava. Inferior vena cava collapse with sniff. Pericardium/Pleural No pericardial effusion. MMode/2D Measurements & Calculations LVIDd: 5.1 cm IVSd: 1.1 cm Ao root diam: 3.4 cm LVIDs: 3.7 cm LVPWd: 1.1 cm RVDd: 3.4 cm FS: 28.1 % LAV(MOD-bp): 52.5 ml LVAd ap4: 29.1 cm2 SV(MOD-sp4): 55.8 ml LAV(MOD-bp) Indexed: 23.5 ml/m2 EDV(MOD-sp4): 96.9 ml LAV(MOD-sp2): 47.3 ml EDV(sp4-el): 97.6 ml LAV(MOD-sp4): 54.0 ml LVAs ap4: 17.4 cm2 ESV(MOD-sp4): 41.1 ml ESV(sp4-el): 40.6 ml EF(MOD-sp4): 57.6 % EF(sp4-el): 58.4 % SV(sp4-el): 57.0 ml LA A4 area: 18.1 cm2 LA dimension(2D): 3.9 cm Time Measurements MV dec time: 0.19 sec Doppler Measurements & Calculations MV E max henrry: 63.4 cm/sec Lat Peak E' Henrry: 8.0 cm/sec Med Peak E' Henrry: 5.0 cm/sec MV A max henrry: 86.1 cm/sec E/E' lat: 7.9 E/E' med: 12.6 MV E/A: 0.74 Ao V2 max: 154.2 cm/sec LV V1 max: 89.0 cm/sec PA V2 max: 103.8 cm/sec Ao max P.5 mmHg LV V1 max P.2 mmHg Ao V2 mean: 107.7 cm/sec Ao mean P.0 mmHg Ao V2 VTI: 29.4 cm TR max henrry: 240.6 cm/sec TR max P.2 mmHg Interpretation Summary The estimated ejection fraction is 65 %. Stage 1 diastolic dysfunction. Trivial tricuspid valve insufficiency. Right ventricular systolic pressure estimated to be 28 mmHg. Compared to echo report dated 04/19/2018, no appreciable changes noted. Ordering Physician: Amilcar Brush Referring Physician: Audi Hayward Performed By: Fallon Yo, YOSEPH, RVT
== END | disposition home or self-care (01) ==
LOC: CVS 10:43
PROVIDERS: Family Provider Family Medicine; PCP Family Medicine; Referring Provider Nurse Practitioner Family; Visit Provider Nurse Practitioner Family
DX: R06.09 Other forms of dyspnea (principal); I48.91 Unspecified atrial fibrillation; I10 Essential (primary) hypertension; E78.5 Hyperlipidemia, unspecified; I27.20 Pulmonary hypertension, unspecified
CPT/HCPCS: 93306

== ENCOUNTER → 2019-01-13 | Outpatient (CLI) | payer MEDICARE, SELFPAY ==
[2019-01-13 10:16] VITALS: BMI 49.6
[2019-01-13 12:19] LABS: Microalbumin:Creatinine Ratio 142.1 mg/g CRE (<30 mg/g CRE)
[2019-01-13 12:39] LABS: ALB/GLOB Ratio 0.8 RATIO (0.9-2.4); AST(SGOT) 19 U/L (15-37); Alanine Aminotransfer ALT/SGPT 22 U/L (13-56); Albumin, Serum 3.2 g/dL (3.2-5.0); Alkaline Phosphatase 55 U/L (45-117); Anion Gap 2 (5-15); BUN 27 mg/dL (7-18); BUN/Creat Ratio 23.7 RATIO (10-20); Calcium,Total 9.7 mg/dL (8.5-10.1); Chloride 110 mmol/L (98-107); Cholesterol 177 mg/dL (200); Creatinine, Serum 1.14 mg/dL (0.55-1.02); EST Glomerular Filtration Rate 49 mL/min (>60); Est Glom Filt Rate - Afr Amer 59 mL/min (>60); Globulin 3.8 g/dL (2.2-4.2); Glucose 203 mg/dL (74-106); High Density Lipoprotein 51 mg/dL; Sodium Level 138 mmol/L (136-145); Thyroid Stim Hormone (TSH) 4.26 uIU/mL (0.358-3.74); Triglycerides 213 mg/dL; Very Low Density Lipoprotein 43 mg/dL (5-40)
== END | disposition home or self-care (01) ==
LOC: BIMLAB 10:30
PROVIDERS: Family Provider Family Medicine; PCP Family Medicine; Visit Provider Family Medicine
DX: E11.9 Type 2 diabetes mellitus without complications (principal); E66.9 Obesity, unspecified; I48.0 Paroxysmal atrial fibrillation
CPT/HCPCS: 36415; 80053; 80061; 82043; 82570; 84443

== ENCOUNTER → 2019-01-18 | Outpatient (CLI) | payer MEDICARE, SELFPAY ==
[2019-01-13 10:37] VITALS: BMI 49.6
[2019-01-18 09:06] VITALS: PULSE 100; PULSE 104; PULSE 106; PULSE 108; PULSE 74; PULSE 77; PULSE 93; O2SAT 91; O2SAT 92; O2SAT 93; O2SAT 94; O2SAT 95
--- NOTE | 2019-01-20 08:12 | PCM.PSN.6M ---
PSN 6 Minute Walk Test - 6 Minute Walk Test 6 Minute Walk Test: 6 Minute Walk Test PSN:6-Minute Walk Test Start: 01/18/19 09:05 Freq: Status: Discharge Protocol: RESP.6MINW Document 01/18/19 09:06 FR (Rec: 01/18/19 09:12 [id number]) 6 Minute Walk Test Date Performed 01/18/19 Time Performed 08:30 Height 5 ft 3 in Weight: 288 lb Weight in Pounds 288.[address]: Bandar Falcon Assistive device used: None Pre-test Oxygen Delivery Method Room Air Pulse Ox (%) 94 Pulse Rate (60-100 beats/min) 74 Dyspnea Urszula Scale (0-10) 0 Exertion Urszula Scale (6-20) 6 1st minute Oxygen Delivery Method Room Air Pulse Ox (%) 91 Pulse Rate (60-100 beats/min) 93 2nd minute Oxygen Delivery Method Room Air Pulse Ox (%) 92 Pulse Rate (60-100 beats/min) 100 Number of Rests Taken 1 3rd minute Oxygen Delivery Method Room Air Pulse Ox (%) 93 Pulse Rate (60-100 beats/min) 104 H Number of Rests Taken 1 Reported Symptoms Increased Work of Breathing 4th minute Oxygen Delivery Method Room Air Pulse Ox (%) 93 Pulse Rate (60-100 beats/min) 104 H 5th minute Oxygen Delivery Method Room Air Pulse Ox (%) 92 Pulse Rate (60-100 beats/min) 106 H 6th minute Oxygen Delivery Method Room Air Pulse Ox (%) 93 Pulse Rate (60-100 beats/min) 108 H Dyspnea Urszula Scale (0-10) 4 Exertion Urszula Scale (6-20) 10 Post-test Oxygen Delivery Method Room Air Pulse Ox (%) 95 Pulse Rate (60-100 beats/min) 77 Full Laps Walked 8 Partial Lap, Number of Tiles Walked 5 Total Distance Walked (ft) 477 - Interpretation Interpretation: The patient ambulated 477 feet over the course of 6 minutes beginning on room air without assistive devices. The patient did take several breaks during testing. Pretesting oxygen saturation was noted to be 94% on room air. With ambulation, the hilario oxygen saturation was 91%. There was evidence of impaired walk distance. Although there was no evidence of significant exertional oxygen desaturation, the sensitivity for detecting such a change would be reduced by frequent breaks. - Recommendations Recommendations: There is no indication for the use of supplemental oxygen at this time.
== END | disposition home or self-care (01) ==
LOC: PSN 08:18
PROVIDERS: Referring Provider Internal Medicine Critical Care Medicine; Visit Provider Internal Medicine Critical Care Medicine
DX: G47.33 Obstructive sleep apnea (adult) (pediatric) (principal)
CPT/HCPCS: 94618

== ENCOUNTER → 2019-01-19 | Outpatient (CLI) | payer MEDICARE, SELFPAY ==
[2018-10-20 11:28] VITALS: BMI 49.6
[2019-01-13 10:37] VITALS: BMI 49.6
--- NOTE | 2019-01-19 14:20 | NEURO ---
NCS and/or EMG Patient Report Ordering Doctor: Audi Hayward DATE OF SERVICE: 01/19/19 Rosie Tinsley is a 78-year-old female who presents for elective diagnostic testing of the right upper limb. She reports numbness tingling and pain in the right hand. Electrodiagnostic findings: The right median motor nerve demonstrates prolonged distal latency with normal amplitude and reduced conduction velocity. Normal right ulnar motor response, including conduction across the elbow. Borderline prolonged right median F wave. Absent right median sensory latency at the wrist. Absent right median palmar latency. Normal ulnar and radial sensory responses. On needle EMG, all muscles tested in the right upper limb showed no evidence of denervation with normal motor unit action potentials. Electrodiagnostic impression: This is an abnormal study in the right upper limb 1. Letter diagnostic findings consistent with right-sided median mononeuropathy. This is consistent with a moderate right carpal tunnel syndrome. If there are any further questions, please do not hesitate contact me.
== END | disposition home or self-care (01) ==
LOC: PSN 13:00
PROVIDERS: Family Provider Family Medicine; PCP Family Medicine; Referring Provider Family Medicine; Visit Provider Family Medicine
DX: R29.898 Other symptoms and signs involving the musculoskeletal system (principal)
CPT/HCPCS: 95886; 95909

== ENCOUNTER → 2019-06-07 10:51 | Outpatient (CLI) | payer MEDICARE, SELFPAY ==
[2019-05-19 13:37] VITALS: BMI 48.9
[2019-06-07 11:33] LABS: Hematocrit 40.1 % (37-47); Hemoglobin 12.8 g/dL (12.0-15.0); Mean Corp Hgb Conc 31.9 g/dL (32-36); Mean Corpuscular Hgb 29.8 pg (27.0-32.0); Mean Corpuscular Volume 93.3 fL (81-99); Mean Platelet Vol. 10.9 fl (6.2-12.0); Platelet Count 198 K/mm3 (150-450); RBC Distribution Width CV 14.1 % (11.6-14.6); White Blood Count 7.1 K/mm3 (4.4-11.0)
[2019-06-07 11:59] LABS: Vitamin B12 1527 pg/mL (211-911)
[2019-06-07 13:16] LABS: AST(SGOT) 22 U/L (15-37); Alanine Aminotransfer ALT/SGPT 23 U/L (13-56); Albumin, Serum 3.5 g/dL (3.2-5.0); Alkaline Phosphatase 48 U/L (45-117); Anion Gap 6 (5-15); BUN 28 mg/dL (7-18); BUN/Creat Ratio 26.4 RATIO (10-20); Chloride 111 mmol/L (98-107); Cholesterol 205 mg/dL (200); Creatinine, Serum 1.06 mg/dL (0.55-1.02); EST Glomerular Filtration Rate 53 mL/min (>60); Est Glom Filt Rate - Afr Amer 65 mL/min (>60); Ferritin 117 ng/mL (8-252); Globulin 3.5 g/dL (2.2-4.2); Glucose 112 mg/dL (74-106); High Density Lipoprotein 56 mg/dL; Iron 100 ug/dL (50-170); Magnesium 2.2 mg/dL (1.6-2.6); Potassium 4.7 mmol/L (3.5-5.1); Sodium Level 143 mmol/L (136-145); Thyroid Stim Hormone (TSH) 2.88 uIU/mL (0.358-3.74); Triglycerides 143 mg/dL; Very Low Density Lipoprotein 29 mg/dL (5-40)
[2019-06-10 12:08] LABS: Vitamin B1, Thiamine 257.6 nmol/L (66.5-200.0)
[2019-06-10 16:22] LABS: Zinc, Plasma or Serum 82 ug/dL (56-134)
== END ==
PROVIDERS: Family Provider Family Medicine; PCP Family Medicine; Referring Provider Registered Nurse Nephrology; Visit Provider Registered Nurse Nephrology
DX: M54.9 Dorsalgia, unspecified (principal); G47.10 Hypersomnia, unspecified; E11.69 Type 2 diabetes mellitus with other specified complication; I10 Essential (primary) hypertension; E78.00 Pure hypercholesterolemia, unspecified; M25.559 Pain in unspecified hip; E66.01 Morbid (severe) obesity due to excess calories; G47.33 Obstructive sleep apnea (adult) (pediatric); Z99.89 Dependence on other enabling machines and devices; E55.9 Vitamin D deficiency, unspecified
CPT/HCPCS: 36415; 80053; 80061; 82306; 82607; 82728; 82746; 83540; 83735; 84425; 84443; 84630; 85027

== ENCOUNTER → 2019-06-20 08:15 | Outpatient (CLI) | payer MEDICARE, SELFPAY ==
[2019-05-19 13:37] VITALS: BMI 48.9
--- NOTE | 2019-06-20 08:17 | US_ITS ---
STUDY: ABDOMINAL ULTRASOUND REASON FOR EXAM: Female, 79 years old. Prebariatric surgery TECHNIQUE: Transabdominal ultrasound was performed with real-time and static light scale imaging. TECHNICAL QUALITY: Adequate. COMPARISON: None. FINDINGS: Liver: The liver measures 19 cm. There is increased echogenicity of the liver. The bile ducts are within normal limits. There is hepatic color flow. The direction of portal flow is hepatopetal. There is no demonstrated mass lesion. Gallbladder: The gallbladder wall measures 2 mm. There is a negative sonographic Rivera's sign. There is no pericholecystic fluid. There are no gallstones. Common Bile Duct (C.B.D.): The common bile duct measures 8 mm. Pancreas: Normal size of the head, body and tail of the pancreas. There is normal echogenicity of the pancreas. There is no demonstrated pancreatic mass or cyst. Spleen: Normal size of the spleen. The spleen measures 10 cm. Right Kidney: The right kidney measures 11 cm. Normal renal cortex. There is no demonstrated renal mass or cyst. There is no right hydronephrosis. Left Kidney: The left kidney measures 12 cm. Normal renal cortex. There is no demonstrated renal mass or cyst. There is no left hydronephrosis. Aorta: The aorta is normal in caliber. I.V.C.: The IVC is patent. There is no ascites. US/Abdomen Complete IMPRESSION: Fatty liver and hepatomegaly. No hepatic lesions identified. Electronically Signed: Florentino Delarosa, at 18:30 EST Tel , Service support ,
--- NOTE | 2019-06-20 09:38 | RAD_ITS ---
STUDY: AIR-CONTRAST UPPER GI SERIES. REASON FOR EXAM: Female, 79 years old. Preoperative evaluation for gastric bypass surgery. FLUOROSCOPY TIME (if supplied): ( 35 seconds ) minutes/seconds. 18 fluoroscopic images were obtained. TECHNIQUE: The patient ingested barium. Imaging of the esophagus, stomach and duodenum were obtained. COMPARISON: None. FINDINGS: The esophagus is unremarkable. There is no evidence of gastroesophageal reflux. No mass lesion is seen. The stomach and duodenum are unremarkable. There is no evidence of ulceration. No mass lesion is present. RAD/Upper GI Series Only IMPRESSION: Unremarkable air-contrast upper GI series. Electronically Signed: Adam Hall, at 15:22 EST , Service support ,
== END ==
PROVIDERS: Family Provider Family Medicine; PCP Family Medicine
DX: M54.9 Dorsalgia, unspecified (principal); G47.10 Hypersomnia, unspecified; E11.69 Type 2 diabetes mellitus with other specified complication; I10 Essential (primary) hypertension; E78.00 Pure hypercholesterolemia, unspecified; M25.559 Pain in unspecified hip; E66.01 Morbid (severe) obesity due to excess calories; G47.33 Obstructive sleep apnea (adult) (pediatric); Z99.89 Dependence on other enabling machines and devices; E55.9 Vitamin D deficiency, unspecified
CPT/HCPCS: 74246; 76700

== ENCOUNTER → 2019-07-04 10:29 | Outpatient (CLI) | payer MEDICARE, SELFPAY ==
[2019-05-19 13:37] VITALS: BMI 48.9
[2019-06-21 07:26] VITALS: BMI 48.5
--- NOTE | 2019-07-04 10:30 | STEWCON_ITS ---
Reason For Study: PREOP Stress Results Protocol: Dobutamine with definity Maximum Predicted HR: 142 bpm Target HR: 121 bpm % Maximum Predicted HR: 86 % DurationHeart Rate Stage (mm:ss) (bpm) BP Dose Comment BASELINE 62 137/74 STAGE 1 3:09 74 / 10.00 STAGE 2 3:00 113 177/7020.00 STAGE 3 2:08 122 168/6830.00 BASELINE 85 150/82 5 CC DEFINITY Stress Duration: 8:17 mm:ss Maximum Stress HR: 122 bpm Baseline Echocardiogram Findings The estimated ejection fraction is 65 %. Stress Echo Wall motion Data Resting WM Intermediate WM Stress WM Resting Wall Motion Wall Motion Stress No regional wall motion No regional wall motion abnormalities noted. abnormalities noted. EKG Data The baseline ECG displays normal sinus rhythm. The patient was titrated from 10 mcg to a maximun of 30 mcg of dobutamine during the stress. The maximum heart rate attained was 123 beats per minute. This was 86% of maximum predicted heart rate. During dobutamine infusion, there were no ST or T wave changes noted to suggest ischemia. No clinical angina was noted. Interpretation Summary The estimated ejection fraction is 65 %. Normal, adequate, dobutamine echocardiogram. Negative for ischemia by EKG and echocardiographic criteria. No anginal symptoms noted. Rare PACs and PVCs noted. Appropriate blood pressure response to dobutamine. Test terminated due to the attainment target heart rate. Final LVEF is 75%. Decreased sensitivity due to poor echo windows requiring Definity agent. Patient tolerated the procedure well. No complications. The study was technically difficult. Contrast injection was performed. Ordering Physician: Abdoul Alcala Referring Physician: Abdoul Alcala Performed By: Maile Brush, YOSEPH, RVT
== END ==
PROVIDERS: Family Provider Family Medicine; PCP Family Medicine; Referring Provider Internal Medicine Cardiovascular Disease; Visit Provider Internal Medicine Cardiovascular Disease
DX: Z01.810 Encounter for preprocedural cardiovascular examination (principal); I48.0 Paroxysmal atrial fibrillation; I27.20 Pulmonary hypertension, unspecified; G47.33 Obstructive sleep apnea (adult) (pediatric); E78.5 Hyperlipidemia, unspecified; E11.9 Type 2 diabetes mellitus without complications; R00.2 Palpitations; R06.09 Other forms of dyspnea
CPT/HCPCS: 93017; 93350; J7040; Q9957; A4216; C8928

== ENCOUNTER → 2020-01-13 10:09 | Outpatient (CLI) | payer MEDICARE, SELFPAY ==
[2020-01-10 07:14] VITALS: BMI 47.9
[2020-01-13 11:08] LABS: AST(SGOT) 22 U/L (15-37); Alanine Aminotransfer ALT/SGPT 25 U/L (13-56); Albumin, Serum 3.6 g/dL (3.2-5.0); Alkaline Phosphatase 50 U/L (45-117); Bilirubin, Direct 0.21 mg/dL (0.00-0.30); Cholesterol 166 mg/dL (200); Globulin 3.8 g/dL (2.2-4.2); High Density Lipoprotein 58 mg/dL; Protein, Total 7.4 g/dL (6.4-8.2); Triglycerides 213 mg/dL; Very Low Density Lipoprotein 43 mg/dL (5-40)
== END ==
PROVIDERS: PCP Family Medicine; Referring Provider Internal Medicine Cardiovascular Disease; Visit Provider Internal Medicine Cardiovascular Disease
DX: E78.5 Hyperlipidemia, unspecified (principal)
CPT/HCPCS: 36415; 80061; 80076

== ENCOUNTER → 2020-10-16 10:17 | Outpatient (CLI) | payer MEDICARE, SELFPAY ==
[2020-07-17 10:10] VITALS: BMI 48.5
[2020-10-16 13:46] LABS: T4 Free Direct 1.19 ng/dL (0.76-1.46); Thyroid Stim Hormone (TSH) 1.94 uIU/mL (0.358-3.74)
== END ==
PROVIDERS: PCP Family Medicine; Referring Provider Family Medicine; Visit Provider Family Medicine
DX: I48.0 Paroxysmal atrial fibrillation (principal)
CPT/HCPCS: 36415; 84439; 84443

== ENCOUNTER → 2021-05-08 10:51 | Outpatient (CLI) | payer MEDICARE, SELFPAY ==
[2021-05-08 12:55] LABS: ALB/GLOB Ratio 0.9 RATIO (0.9-2.4); AST(SGOT) 19 U/L (15-37); Alanine Aminotransfer ALT/SGPT 23 U/L (13-56); Albumin, Serum 3.1 g/dL (3.2-5.0); Alkaline Phosphatase 47 U/L (45-117); Anion Gap 4 (5-15); BUN 22 mg/dL (7-18); BUN/Creat Ratio 23.4 RATIO (10-20); Calcium,Total 9.8 mg/dL (8.5-10.1); Chloride 108 mmol/L (98-107); Creatinine, Serum 0.94 mg/dL (0.55-1.02); EST Glomerular Filtration Rate 61 mL/min (>60); Est Glom Filt Rate - Afr Amer 74 mL/min (>60); Globulin 3.6 g/dL (2.2-4.2); Glucose 162 mg/dL (74-106); Potassium 4.5 mmol/L (3.5-5.1); Protein, Total 6.7 g/dL (6.4-8.2); Sodium Level 142 mmol/L (136-145)
== END ==
PROVIDERS: PCP Family Medicine; Referring Provider Family Medicine; Visit Provider Family Medicine
DX: E11.9 Type 2 diabetes mellitus without complications (principal); Z79.4 Long term (current) use of insulin
CPT/HCPCS: 36415; 80053

== ENCOUNTER 2021-09-12 10:52 | Outpatient (CLI) | payer MEDICARE, SELFPAY ==
--- NOTE | 2021-09-12 11:10 | RAD_ITS ---
STUDY: X-RAY - LEFT KNEE REASON FOR EXAM: Female, 81 years old. Knee pain with giving out. TECHNIQUE: 4 view(s) of the knee. COMPARISON: None. FINDINGS: Osteopenia. Superior patellar spur. Moderate to marked arthrosis of the medial compartment with osteophytes. Mild arthrosis of the lateral compartment with osteophytes. Moderate to marked arthrosis of the patellofemoral compartment with osteophyte formation. Vascular calcification. RAD/Knee 4 or More Views IMPRESSION: Osteopenia with tricompartmental arthrosis as described. No acute abnormality, chondrocalcinosis or erosive changes. Electronically Signed: Dereck Espinoza MD at 11:28 EST ,
== END 2021-09-12 23:59 | disposition home or self-care (01) ==
LOC: RAD 10:54
PROVIDERS: PCP Family Medicine; Visit Provider Physician Assistant
DX: M25.562 Pain in left knee (principal); M23.52 Chronic instability of knee, left knee
CPT/HCPCS: 73564

== ENCOUNTER → 2022-06-12 | Outpatient (CLI) | payer MEDICARE, SELFPAY ==
[2022-06-12 12:34] LABS: Hemoglobin 13.2 g/dL (12.0-15.0); Mean Corpuscular Hgb 30.1 pg (27.0-32.0); Mean Corpuscular Volume 91.1 fL (81-99); Mean Platelet Vol. 11.3 fl (6.2-12.0); Platelet Count 181 K/mm3 (150-450); RBC Distribution Width CV 14.6 % (11.6-14.6); RBC Distribution Width SD 48.9 fl (35.1-43.9); Red Blood Count 4.39 M/mm3 (4.2-5.4); White Blood Count 8.1 K/mm3 (4.4-11.0)
[2022-06-12 12:56] LABS: AST(SGOT) 19 U/L (15-37); Alanine Aminotransfer ALT/SGPT 23 U/L (13-56); Albumin, Serum 3.4 g/dL (3.2-5.0); Alkaline Phosphatase 49 U/L (45-117); Anion Gap 7 (5-15); BUN 24 mg/dL (7-18); BUN/Creat Ratio 25.2 RATIO (10-20); Calcium,Total 9.8 mg/dL (8.5-10.1); Chloride 109 mmol/L (98-107); Cholesterol 162 mg/dL (200); Creatinine, Serum 0.95 mg/dL (0.55-1.02); EST Glomerular Filtration Rate 60 mL/min (>60); Est Glom Filt Rate - Afr Amer 72 mL/min (>60); Globulin 3.4 g/dL (2.2-4.2); Glucose 124 mg/dL (74-106); High Density Lipoprotein 69 mg/dL; Potassium 4.1 mmol/L (3.5-5.1); Protein, Total 6.8 g/dL (6.4-8.2); Sodium Level 143 mmol/L (136-145); Triglycerides 117 mg/dL; Very Low Density Lipoprotein 23 mg/dL (5-40)
== END | disposition home or self-care (01) ==
LOC: BIMLAB 10:01
PROVIDERS: PCP Family Medicine; Referring Provider Family Medicine; Visit Provider Family Medicine
DX: R06.00 Dyspnea, unspecified (principal); E78.2 Mixed hyperlipidemia; N18.2 Chronic kidney disease, stage 2 (mild)
CPT/HCPCS: 36415; 80053; 80061; 85027

== ENCOUNTER 2022-06-20 13:53 | Outpatient (CLI) | payer MEDICARE, SELFPAY ==
--- NOTE | 2022-06-20 13:56 | ECHOD_ITS ---
Reason For Study: DYSPNEA/SOB Procedure This was a 2D Doppler, Color Flow transthoracic echocardiogram. Exam performed in department. Left Ventricle Normal size and thickness. The left ventricular ejection fraction is 55 %. Normal diastology for age. Right Ventricle Normal right ventricle. Atria The left and right atria are normal. Mitral Valve Trivial mitral valve insufficiency. Tricuspid Valve Trivial tricuspid valve insufficiency. Normal pulmonary artery pressure. Aortic Valve Trisinus/trileaflet aortic valve. Trivial aortic valve insufficiency. Pulmonic Valve The pulmonic valve is not well visualized. Trivial pulmonic valve insufficiency. Great Vessels Normal sized aortic root. Pericardium/Pleural No pericardial effusion. MMode/2D Measurements & Calculations LVIDd: 4.5 cm IVSd: 0.94 cm Ao root diam: 3.2 cm LVIDs: 3.1 cm LVPWd: 0.93 cm RVDd: 3.1 cm FS: 30.4 % LAV(MOD-bp): 45.0 ml LVAd ap4: 26.4 cm2 SV(MOD-sp4): 44.7 ml LAV(MOD-bp) Indexed: 21.6 ml/m2 LVLd ap4: 7.3 cm LAV(MOD-sp2): 44.4 ml EDV(MOD-sp4): 76.8 ml LAV(MOD-sp4): 43.2 ml EDV(sp4-el): 81.0 ml LVAs ap4: 14.9 cm2 LVLs ap4: 6.1 cm ESV(MOD-sp4): 32.1 ml ESV(sp4-el): 31.2 ml EF(MOD-sp4): 58.2 % EF(sp4-el): 61.5 % SV(sp4-el): 49.8 ml LA A4 area: 16.7 cm2 LA dimension(2D): 3.4 cm RA A4 area: 15.3 cm2 Time Measurements MV dec time: 0.20 sec Doppler Measurements & Calculations MV E max henrry: 71.3 cm/sec Lat Peak E' Henrry: 8.7 cm/sec Med Peak E' Henrry: 6.3 cm/sec MV A max henrry: 85.9 cm/sec E/E' lat: 8.2 E/E' med: 11.3 MV E/A: 0.83 Ao V2 max: 162.8 cm/sec LV V1 max: 101.3 cm/sec PA V2 max: 108.6 cm/sec Ao max P.6 mmHg LV V1 max P.1 mmHg TR max henrry: 250.6 cm/sec TR max P.1 mmHg ECHO/Echo Complete Interpretation Summary The left ventricular ejection fraction is 55 %. Ordering Physician: Audi Hayward Referring Physician: Audi Hayward Performed By: Karin Ospina RDCS
== END 2022-06-20 23:59 | disposition home or self-care (01) ==
LOC: CVS 13:55
PROVIDERS: PCP Family Medicine; Referring Provider Family Medicine; Visit Provider Family Medicine
DX: R06.09 Other forms of dyspnea (principal)
CPT/HCPCS: 93306

== ENCOUNTER → 2022-08-13 | Outpatient (CLI) | payer MEDICARE, SELFPAY | END | disposition home or self-care (01) | LOC: LABSPEC 11:06 | PROVIDERS: PCP Family Medicine; Referring Provider Physician Assistant; Visit Provider Physician Assistant | DX: R05.9 Cough, unspecified (principal) | CPT/HCPCS: 87635; U0003; U0005 ==

== ENCOUNTER → 2023-02-11 | Outpatient (CLI) | payer MEDICARE, SELFPAY ==
[2023-02-11 12:52] LABS: ALB/GLOB Ratio 0.9 RATIO (0.9-2.4); AST(SGOT) 21 U/L (15-37); Alanine Aminotransfer ALT/SGPT 22 U/L (13-56); Alkaline Phosphatase 52 U/L (45-117); Anion Gap 4 (5-15); BUN 21 mg/dL (7-18); BUN/Creat Ratio 20.4 RATIO (10-20); Calcium,Total 9.4 mg/dL (8.5-10.1); Chloride 111 mmol/L (98-107); Creatinine, Serum 1.03 mg/dL (0.55-1.02); EST Glomerular Filtration Rate 55 mL/min (>60); Est Glom Filt Rate - Afr Amer 66 mL/min (>60); Globulin 3.4 g/dL (2.2-4.2); Glucose 187 mg/dL (74-106); Potassium 4.2 mmol/L (3.5-5.1); Protein, Total 6.4 g/dL (6.4-8.2); Sodium Level 141 mmol/L (136-145); Thyroid Stim Hormone (TSH) 3.02 uIU/mL (0.358-3.74)
== END | disposition home or self-care (01) ==
LOC: BIMLAB 10:56
PROVIDERS: PCP Family Medicine; Visit Provider Family Medicine
DX: R06.09 Other forms of dyspnea (principal); I10 Essential (primary) hypertension
CPT/HCPCS: 80053; 84443

== ENCOUNTER → 2023-05-21 | Outpatient (CLI) | payer MEDICARE, SELFPAY ==
[2023-05-21 15:24] LABS: Absolute Lymphocyte Count 2.73 X10^3/uL (0.83-4.51); Absolute Neutrophil Count 3.7 X10^3/uL (2.0-7.7); Basophil# 0.02 X10^3/uL; Basophil% 0.3 % (0-1); Eosinophil# 0.15 X10^3/uL; Hematocrit 40.8 % (37-47); Hemoglobin 12.9 g/dL (12.0-15.0); Lymphocyte # 2.73 X10^3/ul (0.83-4.51); Lymphocyte % 36.8 % (19-41); Mean Corp Hgb Conc 31.6 g/dL (32-36); Mean Corpuscular Volume 94.9 fL (81-99); Mean Platelet Vol. 10.9 fl (6.2-12.0); Monocyte# 0.78 X10^3/uL; Monocyte% 10.5 % (0-10); NRBC Flagged by Analyzer 0 % (0-5); Neutrophil # 3.73 X10^3/uL (2.7-7.7); Neutrophil % 50.3 % (47-70); Platelet Count 188 K/mm3 (150-450); RBC Distribution Width CV 14.5 % (11.6-14.6); RBC Distribution Width SD 50.2 fl (35.1-43.9); White Blood Count 7.4 K/mm3 (4.4-11.0)
[2023-05-22 07:46] LABS: Vitamin B12 1144 pg/mL (211-911)
== END | disposition home or self-care (01) ==
LOC: BIMLAB 14:01
PROVIDERS: PCP Family Medicine; Referring Provider Family Medicine; Visit Provider Family Medicine
DX: R53.83 Other fatigue (principal); R06.09 Other forms of dyspnea
CPT/HCPCS: 36415; 82607; 85025

== ENCOUNTER → 2024-05-25 | Outpatient (CLI) | payer MEDICARE, SELFPAY ==
[2024-05-25 16:46] LABS: Absolute Lymphocyte Count 3.11 X10^3/uL (0.83-4.51); Absolute Neutrophil Count 3.5 X10^3/uL (2.0-7.7); Basophil# 0.02 X10^3/uL; Basophil% 0.3 % (0-1); Eosinophil# 0.11 X10^3/uL; Eosinophils% 1.5 % (0-5); Hematocrit 40.4 % (37-47); Hemoglobin 12.6 g/dL (12.0-15.0); Lymphocyte # 3.11 X10^3/ul (0.83-4.51); Lymphocyte % 41.6 % (19-41); Mean Corp Hgb Conc 31.2 g/dL (32-36); Mean Corpuscular Hgb 29.9 pg (27.0-32.0); Mean Corpuscular Volume 95.7 fL (81-99); Mean Platelet Vol. 11.6 fl (6.2-12.0); Monocyte% 9.4 % (0-10); NRBC Flagged by Analyzer 0 % (0-5); Neutrophil # 3.53 X10^3/uL (2.7-7.7); Neutrophil % 47.1 % (47-70); Platelet Count 179 K/mm3 (150-450); RBC Distribution Width CV 13.9 % (11.6-14.6); RBC Distribution Width SD 49.2 fl (35.1-43.9); Red Blood Count 4.22 M/mm3 (4.2-5.4); White Blood Count 7.5 K/mm3 (4.4-11.0)
[2024-05-25 17:17] LABS: AST(SGOT) 23 U/L (15-37); Alanine Aminotransfer ALT/SGPT 28 U/L (13-56); Albumin, Serum 3.3 g/dL (3.2-5.0); Alkaline Phosphatase 55 U/L (45-117); Anion Gap 3 (5-15); BUN 19 mg/dL (7-18); BUN/Creat Ratio 19.7 RATIO (10-20); Calcium,Total 10.1 mg/dL (8.5-10.1); Chloride 108 mmol/L (98-107); Creatinine, Serum 0.96 mg/dL (0.55-1.02); EST Glomerular Filtration Rate 59 mL/min (>60); Est Glom Filt Rate - Afr Amer 71 mL/min (>60); Globulin 3.3 g/dL (2.2-4.2); Glucose 211 mg/dL (74-106); Potassium 4.6 mmol/L (3.5-5.1); Protein, Total 6.6 g/dL (6.4-8.2); Sodium Level 140 mmol/L (136-145)
== END | disposition home or self-care (01) ==
LOC: BIMLAB 14:24
PROVIDERS: PCP Family Medicine; Referring Provider Family Medicine; Visit Provider Family Medicine
DX: I27.20 Pulmonary hypertension, unspecified (principal); R06.09 Other forms of dyspnea
CPT/HCPCS: 36415; 80053; 85025

== ENCOUNTER → 2025-06-07 | Outpatient (CLI) | payer MEDICARE, SELFPAY ==
[2025-06-07 18:43] LABS: AST(SGOT) 28 U/L (<=31); Alanine Aminotransfer ALT/SGPT 22 U/L (<=34); Albumin, Serum 3.7 g/dL (3.4-4.8); Alkaline Phosphatase 45 U/L (35-104); Anion Gap 10 (5-15); BUN 22 mg/dL (4-19); BUN/Creat Ratio 20.9 RATIO (10-20); Calcium,Total 10.3 mg/dL (7.6-11.0); Carbon Dioxide 24.3 mmol/L (21.0-32.0); Chloride 108 mmol/L (98-108); Cholesterol 146 mg/dL (<=200); Globulin 2.6 g/dL (2.2-4.2); Glucose 187 mg/dL (70-99); Low Density Lipoprotein Calc. 53 mg/dL; Potassium 4.6 mmol/L (3.3-5.1); Triglycerides 322 mg/dL; Very Low Density Lipoprotein 64 mg/dL (5-40); cholesterol:hdl ratio screen 3.33
== END | disposition home or self-care (01) ==
LOC: MTLAB 14:27
PROVIDERS: PCP Family Medicine; Referring Provider Family Medicine; Visit Provider Family Medicine
DX: E03.9 Hypothyroidism, unspecified (principal); E78.5 Hyperlipidemia, unspecified; I10 Essential (primary) hypertension
CPT/HCPCS: 36415; 80053; 80061; 84443